=== PATIENT | male | born 1950 | race Caucasian/White ===

== ENCOUNTER 2021-05-21 10:37 | Emergency (ER) | payer MEDICARE, SELFPAY ==
[2021-05-21 10:48] VITALS: BP 118/66; PULSE 66; RESP 16; TEMP 36.3; O2SAT 98
[2021-05-21 11:00] VITALS: BP 118/66; PULSE 66; RESP 16; TEMP 36.3; O2SAT 98
--- NOTE | 2021-05-21 11:07 | ED.URI ---
HPI - URI/Sore Throat General Chief Complaint: Upper Respiratory Infection Stated Complaint: cough/head congestion Time Seen by Provider: 05/21/21 10:51 Source: patient and RN notes reviewed Mode of arrival: ambulatory Limitations: no limitations History of Present Illness HPI Narrative: 71-year-old male presents to the [facility] with complaints of I have a head cold and cough. Patient reports he has had sinus drainage, sinus pressure, productive cough. Denies fever states it started over a week ago. Started to get better on Monday and then next day it was a lot worse. Has taken Mucinex DM. Denies fevers, chest pain. No abdominal pain. No nausea vomiting or diarrhea. Related Data Home Medications Medication Instructions Recorded Confirmed ltxyuxwgfjg-ypl-zgvyvpwzp-hrb 1 tablet PO DAILY 05/25/20 05/21/21 149-hyalur 500 mg-500 mg-66.7 mg tablet omega 7-lbj-cid-fish oil 1,200 mg 2 cap PO DAILY 05/25/20 05/21/21 (144 mg-216 mg) capsule ascorbic acid (vitamin C) 1,000 mg 1 g PO DAILY 09/29/20 05/21/21 tablet magnesium 250 mg tablet 500 mg PO DAILY tablet 09/29/20 05/21/21 zinc 50 mg tablet 50 mg PO DAILY 09/29/20 05/21/21 Allergies Allergy/AdvReac Type Severity Reaction Status Date / Time pseudoephedrine Allergy Unknown Unknown Verified 05/21/21 11:02 Review of Systems Review of Systems: All systems reviewed & are unremarkable except as noted in HPI and below Constitutional: Constitutional: Reports no additional constitutional complaints, Denies chills and Denies fever(s) Eyes: Eyes: Reports no additional eye complaints, Denies change in vision and Denies photophobia ENT: Reports as per HPI and Reports nasal congestion Cardiovascular: Cardiovascular: Reports no additional cardiovascular complaints and Denies chest pain Respiratory: Respiratory: Reports as per HPI and Reports cough (Protective) Gastrointestinal: Gastrointestinal: Reports no additional gastrointestinal complaints, Denies abdominal pain, Denies nausea and Denies vomiting Genitourinary: Genitourinary: Reports no additional male genitourinary complaints Musculoskeletal: Musculoskeletal: Reports no additional musculoskeletal complaints, Denies back pain and Denies muscle cramps Integumentary/Breasts: Skin/Breast: Reports system reviewed and no additional complaints, except as docu and Denies rash Neurologic: Reports system reviewed and no additional complaints, except as documented, Denies vertigo and Denies dizziness Psychiatric: Psychiatric: Reports no additional psychiatric complaints Allergic/Immunologic: Allergic/Immunologic: Reports no additional allergic/immunologic complaints, Denies lip swelling, Denies throat swelling and Denies tongue swelling PMFSH Past Medical History Medical History BPH NOS w/o ur obs/LUTS Erectile dysfunction GERD without esophagitis Unspecified osteoarthritis, unspecified site (~01/10/19) Surgical History Surgical History History of arthroscopy of right knee History of hernia surgery left inguinal hernia repair -2008 History of urologic surgery 08/2018 - UroLift surgery Family History Family History Mother Family history of lung cancer Father Family history of lymphoma Family history of congestive heart failure Social History Social History Smoking status: Never smoker Second hand tobacco smoke exposure: No Alcohol intake: current Substance use: never Substance use type: does not use Gender identity (if verbalized by the patient): Male Comments At the time of my signature, I reviewed and agree with the nursing past medical, surgical, social, and family history. There is no relevant family history pertinent to the patient complaint. Exam Const:
== END 2021-05-21 11:15 | disposition home or self-care (01) ==
PROVIDERS: Emergency Provider Nurse Practitioner; PCP Family Medicine
DX: J01.90 Acute sinusitis, unspecified (principal); N40.0 Benign prostatic hyperplasia without lower urinary tract symptoms; K21.9 Gastro-esophageal reflux disease without esophagitis; M19.90 Unspecified osteoarthritis, unspecified site
CPT/HCPCS: 99213; G0463

== ENCOUNTER → 2021-06-08 07:56 | Outpatient (CLI) | payer MEDICARE, SELFPAY ==
--- NOTE | ~2021-06-08 | MR_ITS ---
EXAMINATION: MR knee LT wo con DATE: 06/08/2021 08:55 INDICATION: Unilateral primary osteoarthritis of the left knee presenting with chronic pain TECHNIQUE: Magnetic resonance imaging (MRI) of the left knee was performed without intravenous contra st. Sequences included coronal PD-weighted FSE, coronal PD-weighted FS FSE, sagittal T2-weighted FSE , sagittal PD-weighted FS FSE and axial PD weighted fat saturated FSE. COMPARISON: None. FINDINGS: Medial compartment: Complex tear of the medial meniscus which includes a full-thickness radial tear plane near the laundry helper ior root as well as and longitudinal tear plane extending to the inferior articular surface both lung the inner third of the posterior horn and separately on the peripheral third of the body and posteri or horn. Full-thickness chondral ulceration with deep fissuring and mild underlying subarticular joyce a at the anterior and central weightbearing medial femoral condyle. Lateral compartment: Fraying versus small tear of indeterminate morphology involving the inner free edge of the posterior horn of the lateral meniscus. Deep chondral fissures along the anterior weightbearing lateral femoral condyle. Small central osteophytes in the region of chondral ulceration at the posterior most weight bearing lateral femoral condyle. Patellofemoral compartment: Partial-thickness chondral ulceration with deep fissuring and mild scattered underlying subarticular edema at the lateral patellar facet and apical ridge. Trochlear cartilage is normal. Ligaments and tendons: Anterior and posterior cruciate ligaments are normal. Mild thickening of the proximal medial collater al ligament without surrounding edema to suggest acute injury consistent with mild scarring related t o chronic sprain. The fibular collateral ligament is normal. The extensor mechanism is normal. The vi sualized medial and lateral hamstring tendons as well as the iliotibial band are normal. Fluid: Small to moderate-sized left knee joint effusion with mild synovitis at the suprapatellar pouch. No l oose osteochondral bodies identified. Very small Sigala's cyst. Osseous/other: Normal marrow signal aside from the previous noted mild degenerative subchondral edema. Mild cystic c hange at the posterior root of the torn medial meniscus. No fracture or pathologic marrow replacing p rocess. IMPRESSION: 1. Complex tear of the body and posterior horn of the medial meniscus. 2. Fraying versus small tear of indeterminate morphology along the inner free edge of the posterior h orn of the lateral meniscus. 3. Mild tricompartmental osteoarthritis with regions of high-grade chondromalacia in all 3 compartmen ts. 4. Small to moderate left knee joint effusion and very small Sigala's cyst. Reviewed, dictated and finalized at location A. IMPRESSION: 1. Complex tear of the body and posterior horn of the medial meniscus. 2. Fraying versus small tear of indeterminate morphology along the inner free e dge of the posterior horn of the lateral meniscus. 3. Mild tricompartmental osteoarthritis with regions of high-grade chondromalac ia in all 3 compartments. 4. Small to moderate left knee joint effusion and very small Sigala's cyst.
== END ==
PROVIDERS: PCP Family Medicine
DX: M17.12 Unilateral primary osteoarthritis, left knee (principal); S83.242A Other tear of medial meniscus, current injury, left knee, initial encounter; X58.XXXA Exposure to other specified factors, initial encounter
CPT/HCPCS: 73721

== ENCOUNTER 2022-08-18 01:26 | Day surgery (SDC) | payer MEDICARE, SELFPAY ==
[2022-08-12 08:10] VITALS: BMI 25.1
--- NOTE | 2022-08-12 08:25 | PC.NURSE ---
Report to the Outpatient Waiting Room, entrance under the green pavilion located off [facility], at time __10:00AM on date ___08/18/22____. OR Time: _12:00PM . Time changes happen often and if your time is changed the preop area will call you the afternoon before. - You and your visitor will be asked to self-screen and do not enter if you have any COVID symptoms. - Only one visitor and NO children visitors are allowed at this time. - The patient visitor is requested to leave or wait in car when not with patient due to restrictions. - A mask is required within the hospital. Patients may have clear liquids (water, carbonated beverages, clear teas, apple juice) until 3 hours prior to surgery with a maximum of 20 ounces. - No food from midnight until time of surgery Take the following medications with a SIP of water the morning of surgery: ___NONE Medications to discontinue per physician ___HOLD ALL VITAMINS/SUPPLEMENTS 7 DAYS PRE-OP Date to take last dose____08/11/22 Please no make-up, nail irish, hairspray, perfume, deodorant, or body powder the day of surgery. No jewelry (including any body piercings) or valuables the day of surgery, leave them at home. Please take a shower or bath the night before, or the morning of, surgery with an antibacterial soap. Wear comfortable, loose fitting clothing. Children are encouraged to wear pajamas. - Jewelry must be removed prior to entering the operating room. Rings and piercings that are not removed may be cut off. - The hospital will not accept responsibility for valuables. - Please leave all valuables, including medications, at home the day of surgery. If you are going home after surgery, a licensed ambulette driver must drive you home. - NO public transportation without another adult. - We recommend that an adult stay with you for 24 hours following discharge. - We also recommend that you do not drive, make important decision, drink alcoholic beverages, or take any drugs that were not prescribed by your health care provider for at least 24 hours after your discharge time. Follow any additional instructions given to you from your surgeon. If you or anyone in your household have experienced Covid symptoms in the past week, please notify your surgeon or the nurse liaison at the phone number below for possible testing. Telephone instructions given to __PATIENT and asked if any additional questions and then verbalized understanding. Patient advised to call surgeon office or pre surgery nurse liaison [phone] if any additional questions.
--- NOTE | 2022-08-15 07:44 | PM.IMHP ---
H&P: HPI History of Present Illness Date/Time: 08/15/22 07:44 Chief Complaint: Urinary frequency, urgency and diminished stream Narrative: 72-year-old gentleman with longstanding obstructive and irritable voiding symptoms secondary to bladder outlet obstruction. After thorough evaluation he underwent a UroLift procedure in August 2018. Just prior to that he had had transrectal ultrasound of the prostate which revealed a 41 g gland. After an initial response to the Urolift he again began to have urinary frequency urgency and nocturia. Recent urodynamics revealed findings consistent with persistent bladder outlet obstruction. After discussion of options including medical therapy, alternative minimally invasive procedures and TURP he has elected for the latter. He is aware of the risk including, but not limited to, postoperative bleeding, urinary incontinence, persistent obstructive or irritable symptoms. Review of Systems Cardiovascular: Cardiovascular: Denies chest pain, Denies lightheadedness, Denies palpitations and Denies dyspnea Respiratory: Respiratory: Denies dyspnea Gastrointestinal: Gastrointestinal: Denies diarrhea, Denies nausea and Denies vomiting Genitourinary: Genitourinary: Denies hematuria and Denies dysuria Endocrine: Endocrine: Denies palpitations PMFSH Past Medical History Medical History BPH NOS w/o ur obs/LUTS Erectile dysfunction GERD without esophagitis Seasonal allergies Unspecified osteoarthritis, unspecified site (~01/10/19) Surgical History Surgical History History of arthroscopy of right knee (~2004) History of hernia surgery left inguinal hernia repair -2008 History of urologic surgery 08/2018 - UroLift surgery Family History Family History Mother Family history of lung cancer Father Family history of lymphoma Family history of congestive heart failure Social History Social History Smoking status: Never smoker Second hand tobacco smoke exposure: Yes (IN CHILDHOOD) Alcohol intake: current Drinks per week: 7 Alcohol use details: consumes 2 beers or glasses of wine weekly Substance use: never Substance use type: does not use Additional living arrangements comments: SPOUSE Gender identity (if verbalized by the patient): Male Sexual Orientation (if Verbalized by the Patient): Straight or Heterosexual Spiritual care concerns: No Agree to blood products: Yes Meds Home Medications and Allergies Home Medications Medication Instructions Recorded Confirmed Type ascorbic acid (vitamin C) 1,000 mg 1 g PO DAILY 09/29/20 08/12/22 History tablet (Vitamin C) zinc 50 mg tablet 50 mg PO DAILY 09/29/20 08/12/22 History tadalafil 5 mg tablet 5 mg PO DAILY 11/05/21 08/12/22 History Allergies Allergy/AdvReac Type Severity Reaction Status Date / Time pseudoephedrine Allergy Unknown Other Verified 08/12/22 08:08 Exam Const: General: no acute distress Resp: Effort & Inspection: normal respiratory effort GI: Inspection: non-distended GI Palp: No abdominal tenderness and No Guarding due to palpation present (GI) Auscultation: normal bowel sounds Assessment and Plan Assessment and plan (1) BPH NOS w/o ur obs/LUTS: Code(s): N40.0 - Benign prostatic hyperplasia without lower urinary tract symptoms Status: Acute Assessment and Plan: TURP
--- NOTE | 2022-08-17 12:57 | WPDANESEPPF ---
Anes - Initial Pre Proc Eval Procedure: Operation Date: 08/18/22 11:45 Proposed Procedures p Trans Urethral Resection Prostate - Connor Stanton MD Date/Time: 08/17/22 12:57 Surgeon: Connor Stanton MD Pre Op Diagnosis: BPH Patient Data Age: 72 Gender: M Height: 1.83 m Weight: 84 kg Allergies Allergy/AdvReac Type Severity Reaction Status Date / Time pseudoephedrine Allergy Unknown Other Verified 08/18/22 10:26 Home Medications Medication Instructions Recorded Confirmed Type ascorbic acid (vitamin C) 1,000 mg 1 g PO DAILY 09/29/20 08/12/22 History tablet (Vitamin C) zinc 50 mg tablet 50 mg PO DAILY 09/29/20 08/12/22 History tadalafil 5 mg tablet 5 mg PO DAILY 11/05/21 08/12/22 History Patient hx anesthesia problems: none Family hx anesthesia problems: none Results Review: All pre-operative results and documents have been reviewed as part of the pre-operative evaluation. [facility] Past Medical History Medical History BPH NOS w/o ur obs/LUTS Erectile dysfunction GERD without esophagitis Seasonal allergies Unspecified osteoarthritis, unspecified site (~01/10/19) Surgical History Surgical History History of arthroscopy of right knee (~2004) History of hernia surgery left inguinal hernia repair -2008 History of urologic surgery 08/2018 - UroLift surgery Family History Family History Mother Family history of lung cancer Father Family history of lymphoma Family history of congestive heart failure Social History Social History Smoking status: Never smoker Second hand tobacco smoke exposure: Yes (IN CHILDHOOD) Alcohol intake: current Drinks per week: 7 Alcohol use details: consumes 2 beers or glasses of wine weekly Substance use: never Substance use type: does not use Living arrangements: with family Additional living arrangements comments: SPOUSE Gender identity (if verbalized by the patient): Male Sexual Orientation (if Verbalized by the Patient): Straight or Heterosexual Spiritual care concerns: No Agree to blood products: Yes Anes - Eval Final PreProcedure Day of Procedure 08/17/22 12:57 Patient weight: normal Heart: regular rate and rhythm Lungs: clear to auscultation and normal air movement Airway: Mallampati scale class II Neurological: alert and oriented Last oral intake: >/= 8 hours ASA classification: II Emergent: no Anesthetic plan: proceed Anesthesia type and monitoring: general LMA Results Review: All pre-operative results and documents have been reviewed as part of the pre-operative evaluation. Informed Consent: The patient's anesthetic plan and its attendant risks and benefits were discussed with the patient/family/POA. Questions were solicited and answers provided to the satisfaction of the patient/family/POA.
[2022-08-18] VITALS (15 sets, daily range): BP systolic 113–181; BP diastolic 67–110; PULSE 44–70; RESP 12–20; TEMP 35.5–36.6; O2SAT 93–100; BMI 24.7
--- NOTE | 2022-08-18 06:27 | WPDHPUPDATE1 ---
History and Physical Update Update Date/Time: 08/18/22 06:27 History and Physical has been reviewed, including an updated exam of the patient. There are NO changes in the patient's condition. Risks, benefits, and alternatives have been discussed and questions answered. Patient agrees to proceed with procedure.
[2022-08-18] MEDS: LACTATED RINGERS 1,000 ML 30 ML IV CONT ×2 (10:50→13:38)
[2022-08-18] MEDS: ceFAZolin 2 GM/D5W 50 ML 2 GM/50 ML BAG IVPB (11:32)
[2022-08-18] MEDS: LIDOCAINE HCL 2% GEL UROJET 10 ML PKG MUCOUS MEM (11:32)
--- NOTE | 2022-08-18 12:42 | P.OP_ITS ---
Procedure Note - Detailed Date of Procedure 08/18/22 Pre-op Diagnosis BPH Post-op Diagnosis Same Procedure Performed TURP Surgeon Connor Stanton MD Description of Procedure The patient was brought to the operative suite where he is prepped and draped in routine sterile fashion while in the dorsal lithotomy position after the uneventful induction of a [general LMA/spinal] anesthetic. A 27 Upper Sorbian resectoscope sheath was placed into his bladder. He had no urethral strictures. The patient had bilobar] hyperplasia with a small median lobe. The bladder itself was endoscopically normal, showing no mucosal hyperemia, intravesical neoplasm or foreign bodies. There was a single, orthotopic ureteral orifice bilaterally. These orifices were identified and preserved throughout the remainder of the procedure. Attention was first turned to resection of the skall median lobe. This resection was undertaken from the bladder neck to the verumontanum and carried out until the transverse fibers of the bladder neck were identified. The left lateral lobe was then resected starting at the 6 o'clock position, working counter clockwise to the 12 o'clock position. Again, resection was carried out from the bladder neck to the verumontanum until the capsular fibers of the prostate were identified. The right lateral lobe was resected in a similar fashion starting at the 6 o'clock position working clockwise to the 12 o'clock position and carried out until the capsular fibers of the prostate were identified. Apical tissue was then circumferentially resected. All chips were evacuated from the bladder using an frents evacuator. Hemostasis was obtained with electric cautery. The ureteral orifices were again inspected and found to be without injury. Estimated blood loss throughout this procedure was []cc. The patient was taken to recovery room having tolerated this well. Drains Yes Packing No Pathology Yes Complications No immediate complications Condition Stable Disposition PACU
[2022-08-18] MEDS: fentaNYL CITRATE INJ (*CRX) 100 MCG/2 ML VIAL 25 MCG IV PUSH ×4 (13:19→13:46)
--- NOTE | 2022-08-18 14:34 | ADMGEN ---
This patient, Dave Menezes, was admitted to [facility] Surg Room 328-01. Patient/family oriented to hospital policies and general routines including ID bracelet, bed and alarms, visiting hours, pain management, procedures, bathroom and other care routines, personal items, smoking policy, room service/diet, and visiting hours. Information on how to activate the Rapid Response Team has been discussed. Patient/Family are encouraged to report perceived risks to care and to ask questions if they do not understand what they are told or what they should do.
[2022-08-18] MEDS: hydrALAZINE 10 MG TABLET PO (17:20)
[2022-08-18] MEDS: DOCUSATE SODIUM 100 MG CAPSULE PO (17:22)
[2022-08-19 00:15] VITALS: BP 120/66; PULSE 69; RESP 18; TEMP 36.9; O2SAT 96
[2022-08-19 04:15] VITALS: BP 113/71; PULSE 60; RESP 18; TEMP 36.6; O2SAT 98
--- NOTE | 2022-08-19 07:08 | WPDUROPN2 ---
Progress Note: A&P Assessment and Plan (1) BPH NOS w/o ur obs/LUTS: Code(s): N40.0 - Benign prostatic hyperplasia without lower urinary tract symptoms Status: Acute Assessment and Plan: Doing well POD #1 TURP Stop CBI now / voiding trial later this morning if urine remains clear Subjective Subjective Date/Time Seen: 08/19/22 07:08 Uneventful night Review of Systems Cardiovascular: Cardiovascular: Denies chest pain, Denies lightheadedness, Denies palpitations and Denies dyspnea Respiratory: Respiratory: Denies dyspnea Gastrointestinal: Gastrointestinal: Denies diarrhea, Denies nausea and Denies vomiting Genitourinary: Genitourinary: Denies hematuria and Denies dysuria Endocrine: Endocrine: Denies palpitations Exam Const: General: no acute distress Resp: Effort & Inspection: normal respiratory effort GI: Inspection: non-distended GI Palp: No abdominal tenderness and No Guarding due to palpation present (GI) Auscultation: normal bowel sounds Urinary Catheter: Urinary Catheter: urine pink Objective Data Vital Signs Vital Signs: Vital Signs - 24 hr 08/18/22 10:15 08/18/22 12:46 08/18/22 13:00 Temperature 97.8 F 97.5 F L Pulse Rate 66 50 L 44 L Respiratory Rate 14 16 14 Blood Pressure 113/71 147/94 H 163/93 H Pulse Oximetry 98 98 100 Oxygen Delivery Room Air Simple Face Mask Simple Face Mask Oxygen Flow Rate 6 8 08/18/22 13:15 08/18/22 13:30 08/18/22 13:45 Temperature Pulse Rate 44 L 53 L 46 L Respiratory Rate 12 12 14 Blood Pressure 181/100 H 163/90 H 148/95 H Pulse Oximetry 100 94 93 Oxygen Delivery Simple Face Mask Room Air Room Air Oxygen Flow Rate 8 08/18/22 14:00 08/18/22 14:15 08/18/22 15:06 Temperature Pulse Rate 58 L 52 L Respiratory Rate 14 14 Blood Pressure 171/97 H 170/96 H Pulse Oximetry 98 100 Oxygen Delivery Room Air Room Air Room Air Oxygen Flow Rate 08/18/22 14:30 08/18/22 14:45 08/18/22 15:15 Temperature 96 F L 96.1 F L 96.2 F L Pulse Rate 48 L 55 L 55 L Respiratory Rate 20 18 20 Blood Pressure 158/84 H 163/83 H 175/83 H Pulse Oximetry 99 97 98 Oxygen Delivery Oxygen Flow Rate 08/18/22 16:15 08/18/22 16:45 08/18/22 18:56 Temperature 96.1 F L Pulse Rate 54 L Respiratory Rate 18 Blood Pressure 171/93 H 172/110 H 145/69 H Pulse Oximetry 99 Oxygen Delivery Oxygen Flow Rate 08/18/22 20:15 08/19/22 00:15 08/19/22 04:15 Temperature 97.7 F 98.4 F 97.8 F Pulse Rate 70 69 60 Respiratory Rate 18 18 18 Blood Pressure 129/67 120/66 113/71 Pulse Oximetry 97 96 98 Oxygen Delivery Oxygen Flow Rate Intake/Output Intake/Output: Intake & Output 08/16/22 08/17/22 08/18/22 08/19/22 23:59 23:59 23:59 23:59 Intake Total 890 250 Output Total 9005 1300 Balance -9322 -1050 Meds/Results Medications: Active Medications Generic Name Dose Route Start Last Admin Trade Name Freq PRN Reason Stop Dose Admin Hydrocodone Bitart/Acetaminophen 1 tab 08/18/22 14:30 Hydrocodone/Acetaminophen (*Crx) 5-325 Mg Tablet PO Q4H PRN Pain Rated 1-6 Cephalexin HCl 500 mg 08/19/22 09:00 Cephalexin 500 Mg Capsule PO QID MAR Docusate Sodium 100 mg 08/18/22 17:00 08/18/22 17:22 Docusate Sodium 100 Mg Capsule PO 100 mg BID [facility] Administration Hydralazine HCl 10 mg 08/18/22 16:51 08/18/22 17:20 Hydralazine 10 Mg Tablet PO 10 mg Q6H PRN Administration Blood Pressure - High Hyoscyamine 0.125 mg 08/18/22 14:30 Hyoscyamine Sulfate 0.125 Mg Tablet SUBLINGUAL Q6H PRN Bladder Spasm Morphine Sulfate 2 mg 08/18/22 14:30 Morphine Sulfate (*Crx) 2 Mg/Ml Inj IV PUSH Q2H PRN Pain Rated 7-10 Naloxone HCl 0.1 mg 08/18/22 14:30 Naloxone Hcl 0.4 Mg/Ml Vial IV PUSH Q2M PRN Opiate Reversal Non-Formulary Medication 5 mg 08/19/22 09:00 Tadalafil PO 09/18/22 08:59 DAILY [facility] Ondansetron HCl 4 mg 08/18
[2022-08-19 07:10] LABS: Hematocrit 41.5 % (42.0-52.0); Hemoglobin 13.8 g/dL (14.0-18.0)
[2022-08-19 07:22] LABS: Anion Gap 8 mmol/L (8-16); Blood Urea Nitrogen 19 mg/dL (9-20); Calcium 8.4 mg/dL (8.4-10.2); Carbon Dioxide 27 mmol/L (22-30); Chloride 104 mmol/L (98-107); Estimated CRCL calculation 58 ml/min; Estimated Glomerular Filt Rate > 60; Glucose 112 mg/dL (65-110); Potassium 4.1 mmol/L (3.4-5.0); Sodium 139 mmol/L (137-145)
[2022-08-19] MEDS: DOCUSATE SODIUM 100 MG CAPSULE PO (08:04)
[2022-08-19] MEDS: CEPHALEXIN 500 MG CAPSULE PO ×2 (08:04→12:55)
[2022-08-19] MEDS: HYDROcodone/acetaminophen (*CRX) 5-325 MG TABLET 1 TAB PO (10:04)
--- NOTE | 2022-08-19 10:24 | WPDANESPN ---
Anes - Prog Note Post-Op Date/Time: 08/19/22 10:24 Cardiovascular status: normal Respiratory status: normal Airway patency: baseline Mental status: baseline Post-Op hydration status: normal Vital Signs: Last Vital Signs Temp 36.6 C 08/19/22 04:15 Pulse 60 08/19/22 04:15 Resp 18 08/19/22 04:15 BP 113/71 08/19/22 04:15 Pulse Ox 98 08/19/22 04:15 O2 Del Method Room Air 08/19/22 08:00 O2 Flow Rate 8 08/18/22 13:15 Pain Score (VAS): 11/29 I/O: Intake & Output 08/18/22 08/19/22 08/19/22 23:59 07:59 15:59 Intake Total 290 250 240 Output Total 1875 1300 Balance -1585 -1050 240 Laboratory Tests 08/19/22 06:44 08/19/22 06:44 08/19/22 08/19/22 06:44 06:44 Hgb 13.8 L Hct 41.5 L Sodium 139 Potassium 4.1 Chloride 104 Carbon Dioxide 27 Anion Gap 8 BUN 19 Creatinine 1.10 Estim Creat Clear Calc 58 Estimated GFR > 60 Glucose 112 H Calcium 8.4 Post-procedural complaints: none Patient Feedback: Patient satisfied with anesthetic care.
--- NOTE | 2022-08-19 12:32 | P.DS_ITS ---
DS: Admitting Diagnosis Discharge Date 08/19/2022 Admitting Diagnosis BPH DS: Summary Hospital Course Hospital Course: This patient with longstanding prostatism refractory for medical management was admitted on the morning of his planned TURP. The procedure was undertaken on that same day in an uneventful fashion. His post-operative course was, likewise, uneventful. On the evening of the procedure he was tolerating a diet. On POD#1 his urine was clear on CBI. The urine remained clear and, therefore, the catheter was removed late morning. The patient was observed for several moises rs, until he demonstrated he could void effectively without significant hematuria. He was discharged with careful instruction on limiting physical activity x2 weeks and plans to f/ in 2-3 weeks. At discharge he was comfortable and tolerating a diet. Time Spent with Patient Time attestation: Total time spent providing and/or coordinating discharge services: DS: Data Data Completed and Pending Completed studies during hospitalization: Pending at discharge 08/18/22 12:25 Surgical [PTH] Routine Labs on day of discharge: Labs from last 24 hours 08/19/22 08/19/22 06:44 06:44 Hgb 13.8 L Hct 41.5 L Sodium 139 Potassium 4.1 Chloride 104 Carbon Dioxide 27 Anion Gap 8 BUN 19 Creatinine 1.10 Estim Creat Clear Calc 58 Estimated GFR > 60 Glucose 112 H Calcium 8.4 Discharge Plan Discharge Patient Disposition: Home, Self-Care Discharge Instructions: 1) Activity: No lifting/straining >15lbs. x2 weeks. 2) Diet: Resume normal pre-admission diet. 3) Follow-up: 2-3 weeks / call office for appointment ([phone]). Patient Instructions: Transurethral Prostatectomy (DC), Prostatic Urethral Lift (UroLift System) (DC) Discharge Orders: Discharge Order (Routine); Ordered 08/19/22 Ordered By: Connor Stanton Discharge Medications: New hydrocodone-acetaminophen 5-325 mg tablet 1 - 2 tablet PO Q6H PRN (Reason: pain) Qty: 20 0RF docusate sodium [Colace] 100 mg capsule 100 mg PO DAILY Qty: 30 0RF sulfamethoxazole-trimethoprim 800-160 mg tablet 1 tablet PO Q12H Qty: 6 0RF Continued zinc 50 mg tablet 50 mg PO DAILY ascorbic acid (vitamin C) [Vitamin C] 1,000 mg tablet 1 g PO DAILY tadalafil 5 mg tablet 5 mg PO DAILY
== END 2022-08-19 13:05 | disposition home or self-care (01) ==
LOC: ANHSURGERY 13:26 → ANH3MEDSUR 16:33
PROVIDERS: PCP Family Medicine; Visit Provider Urology
PROC: 0VT08ZZ Resection of Prostate, Via Natural or Artificial Opening Endoscopic (ICD-10-PCS; CPT 52601; principal; 2022-08-18 11:45)
DX: N40.1 Benign prostatic hyperplasia with lower urinary tract symptoms (principal); R35.0 Frequency of micturition; R39.15 Urgency of urination; K21.9 Gastro-esophageal reflux disease without esophagitis
CPT/HCPCS: 52601; 36415; 80048; 85014; 85018; 88305; A9270; J0690; J1100; J2250; J2405; J2704; J3010; J7120

== ENCOUNTER 2022-09-13 13:40 | Outpatient (CLI) | payer MEDICARE, SELFPAY | END 2022-09-13 13:41 | disposition home or self-care (01) | LOC: ANHGOSHLAB 13:42 | PROVIDERS: PCP Family Medicine; Visit Provider Nurse Practitioner Family | DX: E03.9 Hypothyroidism, unspecified (principal) | CPT/HCPCS: 36415; 84443 ==

== ENCOUNTER 2023-06-08 11:02 | Outpatient (CLI) | payer MEDICARE, SELFPAY ==
[2023-06-08 13:28] LABS: Basophils Percent Auto 0.7 % (0.2-1.2); Eosinophils Percent Auto 0.7 % (0-4.4); Hematocrit 48.1 % (42.0-52.0); Hemoglobin 15.6 g/dL (14.0-18.0); Immature Granulocyte Absolute 0.01 K/mm3 (0.00-0.031); Immature Granulocyte Percent A 0.2 % (0-0.5); Lymphocytes Absolute Auto 1.98 K/mm3 (0.9-3.2); Lymphocytes Percent Auto 32.9 % (18.3-44.2); Mean Corpuscular HGB Conc 32.4 g/dl (32-36); Mean Corpuscular Hemoglobin 30.7 pg (26-34); Mean Corpuscular Volume 94.7 fl (80-100); Mean Platelet Volume 11.7 fl (7.4-10.4); Monocytes Absolute Auto 0.5 K/mm3 (0.1-0.6); Monocytes Percent Auto 8.8 % (2.6-8.5); Neutrophils Absolute Auto 3.4 K/mm3 (1.3-6.7); Neutrophils Percent Auto 56.7 % (45.5-73.1); Platelet Count Result 159 k/mm3 (150-375); Red Blood Count 5.08 M/mm3 (4.6-6.20); Red Cell Distribution Width 12.7 % (11.5-14.5)
[2023-06-08 14:20] LABS: Alanine Aminotransferase 18 U/L (6-50); Albumin Level 4.6 g/dL (3.5-5.1); Alkaline Phosphatase 81 U/L (38-126); Anion Gap 4 mmol/L (8-16); Aspartate Amino Transferase 32 U/L (17-59); Blood Urea Nitrogen 18 mg/dL (9-20); Calcium 9.3 mg/dL (8.4-10.2); Carbon Dioxide 32 mmol/L (22-30); Chloride 102 mmol/L (98-107); Cholesterol 188 mg/dL (0-200); Estimated Glomerular Filt Rate > 60; Glucose 99 mg/dL (65-110); HDL Direct 53 mg/dL; Potassium 4.9 mmol/L (3.4-5.0); Sodium 138 mmol/L (137-145); Triglycerides 106 mg/dL (<150)
[2023-06-08 14:35] LABS: Vitamin D 25 Hydroxy 73.5 ng/mL
[2023-06-08 14:40] LABS: LDL Cholesterol Direct 98 mg/dL
[2023-06-08 14:50] LABS: Prostate Specific Antigen 3.8 ng/mL (< OR = 4.0)
[2023-06-09 00:42] LABS: Hemoglobin A1C 5.6 % (<5.7)
== END 2023-06-08 11:03 | disposition home or self-care (01) ==
LOC: ANHGOSHLAB 11:04
PROVIDERS: PCP Family Medicine; Visit Provider Family Medicine
DX: R03.0 Elevated blood-pressure reading, without diagnosis of hypertension (principal); E55.9 Vitamin D deficiency, unspecified; R73.9 Hyperglycemia, unspecified; R61 Generalized hyperhidrosis; Z13.220 Encounter for screening for lipoid disorders; E53.8 Deficiency of other specified B group vitamins; J30.2 Other seasonal allergic rhinitis; R97.20 Elevated prostate specific antigen [PSA]; Z12.5 Encounter for screening for malignant neoplasm of prostate; E79.8 Other disorders of purine and pyrimidine metabolism; E78.00 Pure hypercholesterolemia, unspecified
CPT/HCPCS: 36415; 80053; 80061; 82306; 82607; 83036; 84153; 84443; 85025; G0103

== ENCOUNTER 2023-11-08 01:45 | Day surgery (SDC) | payer MEDICARE, SELFPAY ==
[2023-10-19 14:43] VITALS: BMI 24.7
--- NOTE | 2023-11-06 08:39 | SUR.PREOP ---
Patient called regarding upcoming procedure. Reviewed preop instructions, appointment times, and procedure prep.
[2023-11-08 09:50] VITALS: BP 103/82; PULSE 74; RESP 18; TEMP 36.4; O2SAT 99; BMI 24.3
[2023-11-08] MEDS: LACTATED RINGERS 1,000 ML 150 ML IV CONT (10:08)
--- NOTE | 2023-11-08 10:12 | PM.HPGS ---
History of Present Illness History of Present Illness Consent: Risks, benefits, and alternatives have been discussed and questions answered. Patient agrees to proceed with procedure. Chief complaint: neoplasm screening Narrative: Dave Menezes is a 73 year old male referred for colon cancer screening. Review of Systems Review of Systems: All systems reviewed & are unremarkable except as noted in HPI and below PMFSH Past Medical History Medical History BPH NOS w/o ur obs/LUTS Encounter for screening colonoscopy Erectile dysfunction GERD without esophagitis Seasonal allergies Unspecified osteoarthritis, unspecified site (~01/10/19) Surgical History Surgical History History of arthroscopy of right knee (~2004) History of hernia surgery left inguinal hernia repair -2008 History of urologic surgery 08/2018 - UroLift surgery Hx of transurethral resection of prostate (~08/18/22) Family History Family History Mother Family history of lung cancer Father Family history of lymphoma Family history of congestive heart failure Social History Social History Smoking status: Never smoker Second hand tobacco smoke exposure: Yes Alcohol intake: current Drinks per week: 4 Alcohol use details: Beer or Wine Substance use: never Substance use type: does not use Lack of Transportation: No Lack of Food: Never True Current Housing: Decline to Answer Concerned About Future Housing: Decline to Answer Difficulty Paying Gas/Electric Bills: Decline to Answer Difficulty Paying for Meds: Decline to Answer Currently Unemployed: Decline to Answer Education: Decline to Answer Difficulty w/ Childcare or Family Care: Decline to Answer Living arrangements: with family Additional living arrangements comments: SPOUSE Occupation/Education: retired Gender identity (if verbalized by the patient): Male Sexual Orientation (if Verbalized by the Patient): Straight or Heterosexual Spiritual care concerns: No Agree to blood products: Yes Meds Home Medications and Allergies Home Medications Medication Instructions Recorded Confirmed Type ascorbic acid (vitamin C) 1,000 mg 1 g PO DAILY 09/29/20 10/19/23 History tablet (Vitamin C) zinc 50 mg tablet 50 mg PO DAILY 09/29/20 10/19/23 History tadalafil 5 mg tablet 5 mg PO DAILY 11/05/21 10/19/23 History COVID-19 antigen test (RudiW #2 ea 07/26/23 Rx COVID-19 Ag Self Test kit) Allergies Allergy/AdvReac Type Severity Reaction Status Date / Time pseudoephedrine Allergy Unknown Other Verified 10/19/23 14:42 Vital Signs Vital Signs - 24 hr 11/08/23 09:50 Temperature 36.4 C L Pulse Rate 74 Respiratory Rate 18 Blood Pressure 103/82 Pulse Oximetry 99 Oxygen Delivery Room Air Exam Const: General: alert Orientation/consciousness: patient oriented x3 Resp: Auscultation: clear to auscultation bilaterally Cardio: Rhythm: regular rhythm GI: GI Palp: Yes Soft to palpation and No Tenderness to palpation present (GI) Neuro: General: patient oriented x3 Assessment and Plan Assessment and plan (1) Encounter for screening colonoscopy: Code(s): Z12.11 - Encounter for screening for malignant neoplasm of colon Status: Acute Assessment and Plan: Colonoscopy with possible biopsy or polypectomy or cautery or injection of substances.
--- NOTE | 2023-11-08 10:20 | WPDANESEPPF ---
Anes - Initial Pre Proc Eval Procedure: Operation Date: 11/08/23 11:00 Proposed Procedures p Screening Colonoscopy - Reza Leon MD Date/Time: 11/08/23 10:20 Surgeon: Reza Leon MD Pre Op Diagnosis: neoplasm screening Patient Data Age: 73 Gender: M Height: 1.83 m Weight: 81.5 kg Last Vital Signs Temp 36.4 C L 11/08/23 09:50 Pulse 74 11/08/23 09:50 Resp 18 11/08/23 09:50 BP 103/82 11/08/23 09:50 Pulse Ox 99 11/08/23 09:50 O2 Del Method Room Air 11/08/23 09:50 Allergies Allergy/AdvReac Type Severity Reaction Status Date / Time pseudoephedrine Allergy Unknown Other Verified 10/19/23 14:42 Home Medications Medication Instructions Recorded Confirmed Type ascorbic acid (vitamin C) 1,000 mg 1 g PO DAILY 09/29/20 10/19/23 History tablet (Vitamin C) zinc 50 mg tablet 50 mg PO DAILY 09/29/20 10/19/23 History tadalafil 5 mg tablet 5 mg PO DAILY 11/05/21 10/19/23 History COVID-19 antigen test (BinaxNOW #2 ea 07/26/23 Rx COVID-19 Ag Self Test kit) Patient hx anesthesia problems: none Family hx anesthesia problems: none Results Review: All pre-operative results and documents have been reviewed as part of the pre-operative evaluation. [facility] Past Medical History Medical History BPH NOS w/o ur obs/LUTS Encounter for screening colonoscopy Erectile dysfunction GERD without esophagitis Seasonal allergies Unspecified osteoarthritis, unspecified site (~01/10/19) Surgical History Surgical History History of arthroscopy of right knee (~2004) History of hernia surgery left inguinal hernia repair -2008 History of urologic surgery 08/2018 - UroLift surgery Hx of transurethral resection of prostate (~08/18/22) Family History Family History Mother Family history of lung cancer Father Family history of lymphoma Family history of congestive heart failure Social History Social History Smoking status: Never smoker Second hand tobacco smoke exposure: Yes Alcohol intake: current Drinks per week: 4 Alcohol use details: Beer or Wine Substance use: never Substance use type: does not use Lack of Transportation: No Lack of Food: Never True Current Housing: Decline to Answer Concerned About Future Housing: Decline to Answer Difficulty Paying Gas/Electric Bills: Decline to Answer Difficulty Paying for Meds: Decline to Answer Currently Unemployed: Decline to Answer Education: Decline to Answer Difficulty w/ Childcare or Family Care: Decline to Answer Living arrangements: with family Additional living arrangements comments: [employer] Occupation/Education: retired Gender identity (if verbalized by the patient): Male Sexual Orientation (if Verbalized by the Patient): Straight or Heterosexual Spiritual care concerns: No Agree to blood products: Yes Anes - Eval Final PreProcedure Day of Procedure 11/08/23 10:20 Results Review: All pre-operative results and documents have been reviewed as part of the pre-operative evaluation. Informed Consent: The patient's anesthetic plan and its attendant risks and benefits were discussed with the patient/family/POA. Questions were solicited and answers provided to the satisfaction of the patient/family/POA.
--- NOTE | 2023-11-08 10:21 | WPDANESEPPF ---
Anes - Initial Pre Proc Eval Procedure: Operation Date: 11/08/23 11:00 Proposed Procedures p Screening Colonoscopy - Reza Leon MD Date/Time: 11/08/23 10:21 Surgeon: Reza Leon MD Pre Op Diagnosis: neoplasm screening Patient Data Age: 73 Gender: M Height: 1.83 m Weight: 81.5 kg Last Vital Signs Temp 36.4 C L 11/08/23 09:50 Pulse 74 11/08/23 09:50 Resp 18 11/08/23 09:50 BP 103/82 11/08/23 09:50 Pulse Ox 99 11/08/23 09:50 O2 Del Method Room Air 11/08/23 09:50 Allergies Allergy/AdvReac Type Severity Reaction Status Date / Time pseudoephedrine Allergy Unknown Other Verified 10/19/23 14:42 Home Medications Medication Instructions Recorded Confirmed Type ascorbic acid (vitamin C) 1,000 mg 1 g PO DAILY 09/29/20 10/19/23 History tablet (Vitamin C) zinc 50 mg tablet 50 mg PO DAILY 09/29/20 10/19/23 History tadalafil 5 mg tablet 5 mg PO DAILY 11/05/21 10/19/23 History COVID-19 antigen test (BinaxNOW #2 ea 07/26/23 Rx COVID-19 Ag Self Test kit) Patient hx anesthesia problems: none Family hx anesthesia problems: none Results Review: All pre-operative results and documents have been reviewed as part of the pre-operative evaluation. [facility] Past Medical History Medical History BPH NOS w/o ur obs/LUTS Encounter for screening colonoscopy Erectile dysfunction GERD without esophagitis Seasonal allergies Unspecified osteoarthritis, unspecified site (~01/10/19) Surgical History Surgical History History of arthroscopy of right knee (~2004) History of hernia surgery left inguinal hernia repair -2008 History of urologic surgery 08/2018 - UroLift surgery Hx of transurethral resection of prostate (~08/18/22) Family History Family History Mother Family history of lung cancer Father Family history of lymphoma Family history of congestive heart failure Social History Social History Smoking status: Never smoker Second hand tobacco smoke exposure: Yes Alcohol intake: current Drinks per week: 4 Alcohol use details: Beer or Wine Substance use: never Substance use type: does not use Lack of Transportation: No Lack of Food: Never True Current Housing: Decline to Answer Concerned About Future Housing: Decline to Answer Difficulty Paying Gas/Electric Bills: Decline to Answer Difficulty Paying for Meds: Decline to Answer Currently Unemployed: Decline to Answer Education: Decline to Answer Difficulty w/ Childcare or Family Care: Decline to Answer Living arrangements: with family Additional living arrangements comments: [employer] Occupation/Education: retired Gender identity (if verbalized by the patient): Male Sexual Orientation (if Verbalized by the Patient): Straight or Heterosexual Spiritual care concerns: No Agree to blood products: Yes Anes - Eval Final PreProcedure Day of Procedure 11/08/23 10:21 Patient weight: normal Heart: regular rate and rhythm Lungs: clear to auscultation Airway: Mallampati scale class II Neurological: alert and oriented Last oral intake: >/= 8 hours ASA classification: I Emergent: no Anesthetic plan: proceed Anesthesia type and monitoring: general GIVS and standard monitoring Results Review: All pre-operative results and documents have been reviewed as part of the pre-operative evaluation. Informed Consent: The patient's anesthetic plan and its attendant risks and benefits were discussed with the patient/family/POA. Questions were solicited and answers provided to the satisfaction of the patient/family/POA.
[2023-11-08 10:38] VITALS: BP 109/77; PULSE 67; RESP 14; O2SAT 97
[2023-11-08 10:48] VITALS: BP 111/68; PULSE 59; RESP 19; O2SAT 97
[2023-11-08 10:58] VITALS: BP 125/78; PULSE 68; RESP 18; O2SAT 100
== END 2023-11-08 11:12 | disposition home or self-care (01) ==
PROVIDERS: PCP Family Medicine; Visit Provider Internal Medicine Gastroenterology
PROC: 0DJD8ZZ Inspection of Lower Intestinal Tract, Via Natural or Artificial Opening Endoscopic (ICD-10-PCS; CPT 45378; principal; 2023-11-08 11:00)
DX: Z12.11 Encounter for screening for malignant neoplasm of colon (principal); K57.30 Diverticulosis of large intestine without perforation or abscess without bleeding
CPT/HCPCS: G0121; J2704; J7120

== ENCOUNTER 2024-07-25 11:09 | Outpatient (CLI) | payer MEDICARE, SELFPAY ==
[2024-07-25 13:58] LABS: Basophils Percent Auto 0.4 % (0.2-1.2); Eosinophils Percent Auto 0.5 % (0-4.4); Hemoglobin 15.9 g/dL (14.0-18.0); Immature Granulocyte Absolute 0.01 K/mm3 (0.00-0.031); Immature Granulocyte Percent A 0.2 % (0-0.5); Lymphocytes Absolute Auto 2.11 K/mm3 (0.9-3.2); Lymphocytes Percent Auto 37.9 % (18.3-44.2); Mean Corpuscular HGB Conc 32.4 g/dl (32-36); Mean Corpuscular Hemoglobin 30.2 pg (26-34); Mean Corpuscular Volume 93.2 fl (80-100); Monocytes Absolute Auto 0.4 K/mm3 (0.1-0.6); Monocytes Percent Auto 7.6 % (2.6-8.5); Neutrophils Percent Auto 53.4 % (45.5-73.1); Platelet Count Result 164 k/mm3 (150-375); Red Blood Count 5.26 M/mm3 (4.6-6.20); White Blood Count 5.6 K/mm3 (4.5-10.0)
[2024-07-25 14:47] LABS: Alanine Aminotransferase 25 U/L (6-50); Albumin Level 4.5 g/dL (3.5-5.1); Alkaline Phosphatase 73 U/L (38-126); Anion Gap 7 mmol/L (4-12); Aspartate Amino Transferase 52 U/L (17-59); Bilirubin,Total 0.7 mg/dL (0.2-1.3); Blood Urea Nitrogen 17 mg/dL (9-20); Calcium 9.2 mg/dL (8.4-10.2); Carbon Dioxide 31 mmol/L (22-30); Chloride 101 mmol/L (98-107); Cholesterol 165 mg/dL (0-200); Estimated Glomerular Filt Rate > 60; Glucose 99 mg/dL (65-110); HDL Direct 56 mg/dL; Potassium 4.6 mmol/L (3.4-5.0); Sodium 139 mmol/L (137-145); Triglycerides 87 mg/dL (<150)
[2024-07-25 14:58] LABS: LDL Cholesterol Direct 81 mg/dL
[2024-07-25 16:04] LABS: Hemoglobin A1C 5.8 % (<5.7)
== END 2024-07-25 11:10 | disposition home or self-care (01) ==
LOC: ANHGOSHLAB 11:10
PROVIDERS: PCP Family Medicine; Visit Provider Family Medicine
DX: N52.9 Male erectile dysfunction, unspecified (principal); Z00.00 Encounter for general adult medical examination without abnormal findings; I10 Essential (primary) hypertension; Z13.29 Encounter for screening for other suspected endocrine disorder; E53.8 Deficiency of other specified B group vitamins; R73.9 Hyperglycemia, unspecified; E78.5 Hyperlipidemia, unspecified; E55.9 Vitamin D deficiency, unspecified
CPT/HCPCS: 36415; 80053; 80061; 82306; 82607; 83036; 84443; 85025

== ENCOUNTER 2024-12-26 13:14 | Outpatient (CLI) | payer MEDICARE, SELFPAY ==
--- OUTSIDE RECORDS SUMMARY | 2024-12-26 13:23 | XMS_ITS | Clinical Summary ---
Author Organization [facility] Address [address] [place] [address] Care Team Providers Care Shell Worker Name Role Phone Jaqui Ramirez MD Primary Care Provider Source Comments [facility],non-owned Affiliates and Associated Physician Practices is amultiple site organization consisting of ambulatory clinics and hospital sitesin [place], [place], [place] and [place]. This disclosure is being madepursuant to the Care Everywhere program and may not contain all information available regarding this patient. Last updated 18.[facility] Allergies Active Allergy Reactions Criticality Noted Date Comments Pseudoephedrine Base Other 04/02/2015 Urinary track gets inflammed Medications * Be aware that medications may not be up to date on this document. Alwaysverify current medications with the patient. Medication Sig Dispensed Refills Start Date End Date Status glucosamine 500 MG CAPS capsule Take 1 Cap by mouth once daily. Active [place]-3 Fatty Acids (FISH OIL) 500 MG CAPS capsule Take by mouth 2 times daily. Active omeprazole EC (PRILOSEC OTC) 20 MG tablet Take 20 mg by mouth at bedtime Active Aspirin 81 MG Take 81 mg by mouth Active finasteride (PROSCAR) 5 MG tablet 06/11/2017 Active tamsulosin (FLOMAX) 0.4 MG capsule 03/21/2016 Active fluticasone propionate (FLONASE) 50 MCG/ACT nasal sprayIndications:Acute pharyngitis, unspecified etiology [place] 2 Sprays into each nostril once daily 1 Bottle 06/24/2017 Active Active Problems No known active problems Family History Medical History Relation Name Comments Lymphoma Father Cancer - Lung Mother Relation Name Status Comments Father Mother Social History Tobacco Use Types Packs/Day Years Used Date Smoking Tobacco: Never Smokeless Tobacco: Never Alcohol Use Standard Drinks/Week Comments No 0 (1 standard drink = 0.6 oz pur e alcohol) Sex and Gender Information Value Date Recorded Sex Assigned at Not on file Gender Identity Not on file Sexual Orientation Not on file Last Filed Vital Signs Vital Sign Reading Time Taken Comments Blood Pressure 132/74 09/05/2017 10:23 AM CDT Pulse 64 09/05/2017 10:23 AM CDT Temperature 36.7 C (98.1 F) 09/05/2017 10:23 AM CDT Respiratory Rate 16 09/05/2017 10:23 AM CDT Oxygen Saturation 98% 09/05/2017 10:23 AM CDT Inhaled Oxygen Concentration - - Weight 81.6 kg (180 lb) 09/05/2017 10:23 AM CDT Height 182.9 cm (6') 09/05/2017 10:23 AM CDT Body Mass Index 24.41 09/05/2017 10:23 AM CDT Plan of Treatment Health Maintenance Due Date Last Done Comments COLOGUARD (AGES 45-75) - COL ON CA SCREENING 1949 COLON MONITORING 1949 COLONOSCOPY - COLON CA SCREENING 1949 CT COLONOGRAPHY - COLON CA SCREENING 1950 Colorectal Cancer Screening 1949 FIT - COLON CA SCREENING 1949 FLEX SIG - COLON CA SCREENING 1949 LIPID TESTING 1949 HEPATITIS C SCREENING 01/03/1967 DTAP/TDAP/TD VACCINES (1 - Tdap) 1968 PNEUMOCOCCAL VACCINE 50+ (1 of 1 - PCV) 1999 ZOSTER VACCINE (1 of 2) 1999 Respiratory Syncytial Virus (RSV) Vaccine Pt: or over 60 yrs (1 - 1-dose 75+ series) 2024 COVID-19 VACCINE ( - 2023-2 5 season) 2024 INFLUENZA VACCINE (#1) 2024 08/31/2015 DEPRESSION SCREENING 11/20/2024 HEPATITIS B VACCINE Aged Out No longe r eligible based on patient's age to complete this topic HIB VACCINE Aged Out No longer eligi ble based on patient's age to complete this topic HPV VACCINE Aged Out No longer eligi ble based on patient's age to complete this topic MENINGOCOCCAL (Group B) VACCINE Aged Out No longer eligible based on patient's age to complete this topic MENINGOCOCCAL VACCINE Aged Out No oliver thee eligible based on patient's age to complete this topic Care Teams Shell Worker Relationship Specialty Start Date End Date Jaqui Ramirez MD [address] [place] [address] PCP - General 08/25/22
--- OUTSIDE RECORDS SUMMARY | 2024-12-26 13:23 | XMS_ITS | Patient Health Summary ---
Author Organization [facility] Address [address] [place] [address] Care Team Providers Care Curtain Roller Assembler Name Role Phone Jaqui Ramirez MD Primary Care Provider Note from [facility],non-owned Affiliates and Associated Physician Practices is amultiple site organization consisting of ambulatory clinics and hospital sitesin [place], [place], [place] and [place]. This disclosure is being madepursuant to the Care Everywhere program and may not contain all information available regarding this patient. Last updated 18.[facility] Allergies * Pseudoephedrine Base(Other) Medications * Be aware that medications may not be up to date on this document. Alwaysverify current medications with the patient. * glucosamine 500 MG CAPS capsule Take 1 Cap by mouth once daily. * [place]-3 Fatty Acids (FISH OIL) 500 MG CAPS capsule Take by mouth 2 times daily. * omeprazole EC (PRILOSEC OTC) 20 MG tablet Take 20 mg by mouth at bedtime * Aspirin 81 MG Take 81 mg by mouth * finasteride (PROSCAR) 5 MG tablet(Started 06/11/2017) * tamsulosin (FLOMAX) 0.4 MG capsule(Started 03/21/2016) * fluticasone propionate (FLONASE) 50 MCG/ACT nasal spray(Started 06/24/2017) [place] 2 Sprays into each nostril once daily Active Problems No known active problems Social History Tobacco Use Types Packs/Day Years [...] Mass Index 24.41 09/05/2017 10:23 AM CDT Procedures * STREP A SCREEN - POINT OF CARE (AMB) STL(Performed 06/24/2017) Performed for Acute pharyngitis, unspecified etiology * CULTURE URINE(Performed 04/09/2016) Performed for Hematuria * URINALYSIS AUTO - POINT OF CARE (AMB) [facility](Performed 04/09/2016) Performed for Hematuria Results * STREP A SCREEN (06/24/2017 11:10 AM CDT) Strep A Rapid POCT Negative Negative Strep A Internal Control Present Lot # [id number] Expiration Date 02 10 2019 Throat ENTIRE THROAT (SURFACE REGION OF NECK) / Unknown 06/24/2017 11:10 AM CDT Sony Lawrence APRN-MILITARY ANALYST LAB - POINT OF [place] RE ORDERABLES * CULTURE URINE (04/09/2016 11:46 AM CDT) Culture No Growth Day 2 MARTIN 04/12/2016 7:12 AM CDT [facility] Urine URINE SPECIMEN OBTAINED BY CLEAN CATCH PROCEDURE / Unknown 04/09/2016 11:46 AM CDT 04/09/2016 11:46 AM CDT Beltran Quiles MD LAB - MICROBIOLOGY O RDERABLES [facility] [address] [place], [place] [address]R[place] [phone] * (ABNORMAL) URINALYSIS AUTO - POINT OF CARE (AMB) [facility] (04/09/2016) Clarity UA POCT Clear Color UA POCT Yellow Glucose UA Negative Negative Bilirubin UA POCT Negative Negative Ketone UA Negative Negative Specific [place] UA POCT >=1.030(A) 1.015, 1.020, 1.025 Blood UA POCT Moderate(A) Negative pH UA 5.5 5.0 - 8.0 pH units Protein UA Negative Negative Urobilinogen UA 0.2 0.1 - 1.0 Nitrite UA Negative Negative Leukocyte UA Negative Negative QC Verified Yes Yes Urine specimen (specimen) URINE / Unknown 04/09/2016 Beltran Quiles MD LAB - POINT OF CARE ORDERABLES Care Teams Curtain Roller Assembler Relationship Specialty Start Date End Date Jaqui Ramirez MD [address] [place] [address] PCP - General 08/25/22
--- OUTSIDE RECORDS SUMMARY | 2024-12-26 13:23 | XMS_ITS | Referral Summary ---
Author Organization [facility] Address [address] [place] [address] Care Team Providers Care Prism Inspector Name Role Phone Jaqui Ramirez MD Primary Care Provider Source Comments [facility],non-owned Affiliates and Associated Physician Practices is amultiple site organization consisting of ambulatory clinics and hospital sitesin [place], [place], [place] and [place]. This disclosure is being madepursuant to the Care Everywhere program and may not contain all information available regarding this patient. Last updated 18.[facility] Allergies Active Allergy Reactions Criticality Noted Date Comments Pseudoephedrine Base Other 04/02/2015 Urinary track gets inflammed Medications * Be aware that medications may not be up to date on this document. Alwaysverify current medications with the patient. Medication Sig Dispensed Refills Start Date End Date Status glucosamine 500 MG CAPS capsule Take 1 Cap by mouth once daily. Active [place]-3 Fatty Acids (FISH OIL) 500 MG CAPS capsule Take by mouth 2 times daily. Active omeprazole EC (PRILOSEC OTC) 20 MG tablet Take 20 mg by mouth at bedtime Active Aspirin 81 MG Take 81 mg by mouth Active finasteride (PROSCAR) 5 MG tablet 06/11/2017 Active tamsulosin (FLOMAX) 0.4 MG capsule 03/21/2016 Active fluticasone propionate (FLONASE) 50 MCG/ACT nasal sprayIndications:Acute pharyngitis, unspecified etiology [place] 2 Sprays into each nostril once daily 1 Bottle 06/24/2017 Active Active Problems No known active problems Social [...] 09/05/2017 10:23 AM CDT Plan of Treatment Not on file Care Teams Prism Inspector Relationship Specialty Start Date End Date Jaqui Ramirez MD [address] [place] [address] PCP - General 08/25/22
--- OUTSIDE RECORDS SUMMARY | 2024-12-26 13:23 | XMS_ITS | Clinical Summary ---
Author Organization [facility] Address Pending sale to [facility] [place] [address] Care Team Providers Care Painting Supervisor Name Role Phone Jaqui Ramirez MD Primary Care Provider Allergies Active Allergy Reactions Criticality Noted Date Comments Pseudoephedrine Other (See comments) Low 04/02/2015 Urinary tract discomfort Urinary track gets inflammed Medications zinc 50 mg tablet 0 Active tamsulosin (FLOMAX) 0.4 mg extended release capsule 6 Active sildenafiL (VIAGRA) 100 mg tablet 9 Active omeprazole (PriLOSEC) 40 mg capsule Take by mouth daily 0 Active fluticasone propionate (FLONASE) 50 mcg/actuation nasal spray Administer 2 sprays into affected nostril(s) daily 7 Active finasteride (PROSCAR) 5 mg tablet 7 Active aspirin 81 mg enteric coated tablet Take 81 mg by mouth Active omega-3 fatty acids-fish oil 300-500 mg capsule Take by mouth 2 (two) times a day Active sodium chloride 0.9% 0.9% parenteral solution 1,000 mL with thiamine 100 mg/mL solution 500 mg, folic acid 5 mg/mL solution 1 mg 0 Active glucosam-chondr sdo-T-vkrllaevk 500-400-2-0.33 mg capsule Take 1 capsule by mouth daily Active omega 3-nxx-soe-fish oil (Fish Oil) 900-1,400 mg capsule,delayed release(DR/EC) 8 Active ascorbic acid,vitamin C,,bulk, 100 % powder Take by mouth Active tadalafiL (CIALIS) 5 mg tablet Take 5 mg by mouth daily 2 Active Active Problems No known active problems Surgical History Surgery Date Site/Laterality Comments HERNIA REPAIR KNEE SURGERY TRANSURETHRAL RESECTION OF PROSTATE Medical History Medical History Date Comments Cancer (CMS/HCC) (HCC) Family History Medical History Relation Name Comments Cancer Father Cancer Mother Relation Name Status Comments Father Mother Social History Tobacco Use Types Packs/Day Years Used Date Smoking Tobacco: Never Smokeless Tobacco: Never Personal Safety Answer Date Recorded Getting School Help Needed Not on file 11/10 Sex and Gender Information Value Date Recorded Sex Assigned at Not on file Legal Sex Male 10:02 AM STICK PULLER Gender Identity Male 05/27/2020 8:57 AM CDT Sexual Orientation Straight 05/27/2020 8: 57 AM CDT Obstetrics History Last Filed Vital Signs Vital Sign [place] Time Taken Comments Blood Pressure 121/75 11/03/2022 9:12 AM STICK PULLER Pulse 64 11/03/2022 9:12 AM STICK PULLER Temperature - - Respiratory Rate - - Oxygen Saturation - - Inhaled Oxygen Concentration - - Weight 84.4 kg (186 lb) 11/03/2022 9:12 AM STICK PULLER Height 182.9 cm (6') 11/03/2022 9:12 AM STICK PULLER Body Mass Index 25.23 11/03/2022 9:12 AM STICK PULLER Plan of Treatment Health Maintenance Due Date Last Done Comments Colon Cancer Screening-Colonoscopy 1949 Depression Screening 1949 Fall Risk Assessment 1949 Hepatitis C Screening 1949 Hepatitis B Screening 1967 Abdominal Aortic Aneurysm (AAA) Screen 2014 Pneumococcal vaccine 65+ (1 of 1 - PCV) 2014 Well Visit 65+ 2014 Zoster Vaccine (2 of 3) 07/16/2019 05/21/2019 Influenza Vaccine (#1) 2024 10/19/2018, 2014 DTaP/Tdap/Td Vaccine (2 - Td or Tdap) 05/25/203004/2020 Insurance [employer] MEDICARE GOLD [facility] Care Teams Painting Supervisor Relationship Specialty Start Date End Date Jaqui Ramirez MD PCP - General Family Practice 05/26/20
--- OUTSIDE RECORDS SUMMARY | 2024-12-26 13:23 | XMS_ITS | Clinical Summary ---
Author Organization [facility] Address [address] [address] Phone Care Team Providers Care Paper Cup Handle Machine Operator Name Role Phone Darius Balderas MD Primary Care Provider [phone] Darius Balderas MD Unavailable Allergies Active Allergy Reactions Criticality Noted Date Comments Pseudoephedrine Other (see Comments) 11/02/2015 Urinary tract discomfort Medications aspirin EC 81 MG Tablet Delayed Response Take 81 mg by mouth daily. Active Glucosamine 500 MG Capsule Take 1 Cap by mouth daily. Active [place]-3 Fatty Acids (FISH OIL) 500 MG Capsule Take 1 Cap by mouth daily. Active CHONDROITIN SULFATE A PO Take by mouth. Active Ascorbic Acid (VITAMIN C PO) Take by mouth. Active tamsulosin (FLOMAX) 0.4 MG Capsule 03/21/2016 Active Omeprazole 20 MG Tablet Delayed Response Take by mouth. Active finasteride (PROSCAR) 5 MG Tablet 06/11/2017 Active Active Problems No known active problems Immunizations Immunization Administration Dates Next Due Influenza Vaccine greater than 3 yrs 08/31/2015 Family History Medical History Relation Name Comments Cancer Father Cancer Mother Congestive Heart Failure Sister Relation Name Status Comments Brother Alive Father Mother Sister Alive Social History Tobacco Use Types Packs/Day Years Used Date Smoking Tobacco: Never Alcohol Use Standard Drinks/Week Comments Yes 0 (1 standard drink = 0.6 oz pur e alcohol) occiasional Sex and Gender Information Value Date Recorded Sex Assigned at Not on file 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 Gender Identity Not on file Sexual Orientation Not on file Last Filed Vital Signs Vital Sign [place] Time Taken Comments Blood Pressure 110/72 06/14/2017 10:21 AM CDT Pulse 67 06/14/2017 10:21 AM CDT Temperature - - Respiratory Rate 16 06/14/2017 10:21 AM CDT Oxygen Saturation 98% 06/14/2017 10:21 AM CDT Inhaled Oxygen Concentration - - Weight 81.6 kg (180 lb) 06/14/2017 10:21 AM CDT Height 182.9 cm (6') 06/14/2017 10:21 AM CDT Body Mass Index 24.41 06/14/2017 10:21 AM CDT Plan of Treatment Health Maintenance Due Date Last Done Comments Hepatitis C Virus (HCV) Screening 1950 TdaP Immunization 1949 Colonoscopy 1994 Colorectal Cancer Screening 1994 Cologuard 1999 Immunochemical Fecal Occult Blood 1999 Pneumococcal Immunization (5 0+ years) (1 of 1 - PCV) 1999 Zoster Immunization (1 of 2) 1999 Respiratory Syncytial Virus (RSV) Immunization (Adult) (1 - 1-dose 75+ series) 2024 Influenza Immunization (#1) 2024 08/31/2015 SARS-COV-2 Immunization (1 - 2023- season) 2024 Hepatitis B Immunization Aged Out No longer eligible based on patient's age to complete this topic Meningococcal Immunization (ACWY) Aged Out No longer eligible based on patient's age to complete this topic Rotavirus Immunization Aged Out No lo nger eligible based on patient's age to complete this topic Care Teams Paper Cup Handle Machine Operator Relationship Specialty Start Date End Date Darius Balderas MD [address] [place] [address] PCP - General Family Medicine 05/06/16 Darius Balderas MD [address] [place] [address] Family Medicine 05/06/16
--- OUTSIDE RECORDS SUMMARY | 2024-12-26 13:23 | XMS_ITS | Referral Summary ---
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 DRAPERY CUTTER Gender Identity Male 05/27/2020 8:57 AM CDT Sexual Orientation Straight 05/27/2020 8: 57 AM CDT Last Filed Vital Signs Vital Sign [place] Time Taken Comments Blood Pressure 121/75 11/03/2022 9:12 AM DRAPERY CUTTER Pulse 64 11/03/2022 9:12 AM DRAPERY CUTTER Temperature - - Respiratory Rate - - Oxygen Saturation - - Inhaled Oxygen Concentration - - Weight 84.4 kg (186 lb) 11/03/2022 9:12 AM DRAPERY CUTTER Height 182.9 cm (6') 11/03/2022 9:12 AM DRAPERY CUTTER Body Mass Index 25.23 11/03/2022 9:12 AM DRAPERY CUTTER Plan of Treatment Not on file Insurance AETNA MEDICARE GOLD [facility] Care Teams Automat Car Attendant Relationship Specialty Start Date End Date Jaqui Ramirez MD PCP - General Family Practice 05/26/20
--- OUTSIDE RECORDS SUMMARY | 2024-12-26 13:23 | XMS_ITS | Continuity of Care Document ---
Author Name [facility] Address [address] [place] [address] Organization [facility] Care Team Providers Care Executive Director Contract Shop Name Role Phone [facility] Unavailable Unavailable Allergies, Adverse Reactions, Alerts Substance Category Reaction Severity Reaction type Status Date Reported Comments Source predniSONE Assertion Drug allergy Active [facility] n[place]
[2024-12-26 15:58] LABS: Hemoglobin A1C 5.9 % (<5.7)
== END 2024-12-26 13:15 | disposition home or self-care (01) ==
LOC: ANHGOSHLAB 13:16
PROVIDERS: PCP Family Medicine; Visit Provider Family Medicine
DX: R73.03 Prediabetes (principal)
CPT/HCPCS: 36415; 83036

== ENCOUNTER 2025-03-18 13:30 | Outpatient (CLI) | payer MEDICARE, SELFPAY ==
--- NOTE | 2025-03-18 14:45 | NEURO_ITS ---
Impression: # Complains of numbness of hands. ? # Mild bilateral Carpal Tunnel Syndrome, sensory more than motor. ? # Right ulnar neuropathy across the elbow. ? # Mildly abnormal needle/EMG exam. ? # Clinical correlation recommended. Nerve Conduction Studies Anti Sensory Summary Table ?Stim Site NR Peak (ms) P-T Amp (?V) Site1 Site2 Delta-P (ms) Dist (cm) Nasir (m/s) Left Median Anti Sensory (2-3nd Digit) Wrist ? 4.3 25.2 Wrist 2-3nd Digit 4.3 14.0 33 Wrist ? 4.3 36.3 Wrist 2-3nd Digit 4.3 14.0 33 Right Median Anti Sensory (2-3nd Digit) Wrist ? 4.1 13.1 Wrist 2-3nd Digit 4.1 14.0 34 Wrist ? 4.2 20.4 Wrist 2-3nd Digit 4.1 14.0 34 Left Radial Anti Sensory (Base 1st Digit) Wrist ? 2.3 10.2 Wrist Base 1st Digit 2.3 0.0 Right Radial Anti Sensory (Base 1st Digit) Wrist ? 2.3 14.6 Wrist Base 1st Digit 2.3 0.0 Left Ulnar Anti Sensory (5th Digit) Wrist ? 3.1 13.6 Wrist 5th Digit 3.1 14.0 45 Right Ulnar Anti Sensory (5th Digit) Wrist ? 2.8 42.4 Wrist 5th Digit 2.8 14.0 50 Motor Summary Table ?Stim Site NR Onset (ms) O-P Amp (mV) Site1 Site2 Delta-0 (ms) Dist (cm) Nasir (m/s) Left Median Motor (Abd Poll Brev) Wrist ? 4.5 3.1 Elbow Wrist 6.0 33.0 55 Elbow ? 10.5 6.1 Right Median Motor (Abd Poll Brev) Wrist ? 4.3 4.5 Elbow Wrist 6.4 32.0 50 Elbow ? 10.7 4.2 Left Ulnar Motor (Abd Dig Minimi) Wrist ? 2.8 4.0 A Elbow Wrist 5.5 32.0 58 A Elbow ? 8.3 4.1 B Elbow Wrist 4.5 25.0 56 B Elbow ? 7.3 4.3 Right Ulnar Motor (Abd Dig Minimi) Wrist ? 3.0 5.7 A Elbow Wrist 6.5 32.0 49 A Elbow ? 9.5 4.0 B Elbow Wrist 4.1 23.0 56 B Elbow ? 7.1 4.3 F Wave Studies ?NR F-Lat (ms) L-R F-Lat (ms) Left Median (Mrkrs) (Abd Poll Brev) ? 33.39 0.99 Right Median (Mrkrs) (Abd Poll Brev) ? 34.39 0.99 Left Ulnar (Mrkrs) (Abd Dig Min) ? 32.26 1.19 Right Ulnar (Mrkrs) (Abd Dig Min) ? 33.45 1.19 EMG ?Side Muscle Nerve Root Ins Act Fibs Amp Dur Recrt Comment Right 1stDorInt Ulnar C8-T1 Nml Nml Nml >12ms +1 Right Ext Indicis Radial (Post Int) C7-8 Nml Nml Nml Nml Nml Right Ext Digitorum Radial (Post Int) C7-8 Nml Nml Nml Nml Nml Right BrachioRad Radial C5-6 Nml Nml Nml Nml Nml Right PronatorTeres Median C6-7 Nml Nml Nml Nml Nml Right Abd Poll Brev Median C8-T1 Nml Nml Nml Nml Nml Right ABD Dig Min Ulnar C8-T1 Nml Nml Nml >12ms +1 Right FlexPolLong Median (Ant Int) C7-8 Nml Nml Nml Nml Nml Right Abd Poll Long Radial (Post Int) C7-8 Nml Nml Nml Nml Nml Left 1stDorInt Ulnar C8-T1 Nml Nml Nml Nml Nml Left Ext Indicis Radial (Post Int) C7-8 Nml Nml Nml Nml Nml Left Ext Digitorum Radial (Post Int) C7-8 Nml Nml Nml Nml Nml Left BrachioRad Radial C5-6 Nml Nml Nml Nml Nml Left PronatorTeres Median C6-7 Nml Nml Nml Nml Nml Left Abd Poll Brev Median C8-T1 Nml Nml Nml Nml Nml Left ABD Dig Min Ulnar C8-T1 Nml Nml Nml Nml Nml Left FlexPolLong Median (Ant Int) C7-8 Nml Nml Nml Nml Nml Left Abd Poll Long Radial (Post Int) C7-8 Nml Nml Nml Nml Nml MTDD
--- OUTSIDE RECORDS SUMMARY | 2025-03-18 14:46 | XMS_ITS | Clinical Summary ---
Author Organization [facility] Address [address] [place] [address] Care Team Providers Care Balance Wheel Hand Filer Name Role Phone Jaqui Ramirez MD Primary Care Provider Source Comments [facility],non-owned Affiliates and Associated Physician Practices is amultiple site organization consisting of ambulatory clinics and hospital sitesin [place], [place], [place] and [place]. This disclosure is being madepursuant to the Care Everywhere program and may not contain all information available regarding this patient. Last updated 18.[facility] Allergies Active Allergy Reactions Criticality Noted Date Comments Pseudoephedrine Base Other 04/02/2015 Urinary track gets inflammed Medications * Be aware that medications may not be up to date on this document. Alwaysverify current medications with the patient. glucosamine 500 MG CAPS capsule Take 1 Cap by mouth once daily. Active [place]-3 Fatty Acids (FISH OIL) 500 MG CAPS capsule Take by mouth 2 times daily. Active omeprazole EC (PRILOSEC OTC) 20 MG tablet Take 20 mg by mouth at bedtime Active Aspirin 81 MG Take 81 mg by mouth Active finasteride (PROSCAR) 5 MG tablet 06/11/2017 Active tamsulosin (FLOMAX) 0.4 MG capsule 03/21/2016 Active fluticasone propionate (FLONASE) 50 MCG/ACT nasal sprayIndications :Acute pharyngitis, unspecified etiology [place] 2 Sprays into each nostril once daily [...] at Not on file Legal Sex Male 1:17 PM CDT Gender Identity Not on file Sexual Orientation [...] Health Maintenance Due Date Last Done Comments HEPATITIS C SCREENING 01/03/1967 DTAP/TDAP/TD VACCINES (1 - Tdap) 1968 PNEUMOCOCCAL VACCINE 50+ (1 of 1 - PCV) 1999 ZOSTER VACCINE (1 of 2) 1999 Respiratory Syncytial Virus (RSV) Vaccine Pt: or over 60 yrs (1 - 1-dose 75+ series) 2024 COVID-19 VACCINE ( - 2023-2 5 season) 2024 DEPRESSION SCREENING 11/20/2024 INFLUENZA VACCINE (Season Ended) 2025 08/31/20 15 HEPATITIS B VACCINE Aged Out No longe r eligible based on patient's age to complete this topic HIB VACCINE Aged Out No longer eligi ble based on patient's age to complete this topic HPV VACCINE Aged Out No longer eligi ble based on patient's age to complete this topic MENINGOCOCCAL (Group B) VACC INE SHARED DECISION-MAKING Aged Out No longer eligibl e based on patient's age to complete this topic MENINGOCOCCAL GROUPS A/C/Y/W VACCINE Aged Out No longer eligible b ased on patient's age to complete this topic Insurance COVENTRY MEDICARE COVENTRY MEDICARE [facility] Care Teams Balance Wheel Hand Filer Relationship Specialty Start Date End Date Jaqui Ramirez MD [address] [place] [address] PCP - General 08/25/22
--- OUTSIDE RECORDS SUMMARY | 2025-03-18 14:46 | XMS_ITS | Continuity of Care Document ---
Author Name [facility] Address [address] [place] [address] Organization [facility] Care Team Providers Care Banquet Server Name Role Phone [facility] Unavailable Unavailable Allergies, Adverse Reactions, Alerts Substance Category Reaction Severity Reaction type Status Date Reported Comments Source predniSONE Assertion Drug allergy Active [facility] nton
--- OUTSIDE RECORDS SUMMARY | 2025-03-18 14:46 | XMS_ITS | Clinical Summary ---
Author Organization [facility] Address [facility] [address] Care Team Providers Care Clinical Laboratory Aide Name Role Phone Jaqui Ramirez MD Primary [...] mg/mL solution 1 mg 0 Active glucosam-chondr kan-W-thhzbvwfl 500-400-2-0.33 mg capsule Take 1 capsule by mouth daily Active omega 1-gml-glf-fish oil (Fish Oil) 900-1,400 mg capsule,delayed release(DR/EC) 8 Active ascorbic acid,vitamin C,,bulk, 100 % powder Take by mouth Active tadalafiL (CIALIS) 5 mg tablet Take 5 mg by mouth daily 2 Active Active Problems No known active problems Surgical History Surgery Date Site/Laterality Comments HERNIA REPAIR KNEE SURGERY TRANSURETHRAL RESECTION OF PROSTATE Medical History Medical History Date Comments Cancer (HCC) Family History Medical History Relation Name [...] on file 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 Gender Identity Male 05/27/2020 8:57 AM CDT Sexual Orientation Straight 05/27/2020 8: 57 AM CDT Obstetrics History Last Filed Vital Signs Vital Sign [place] Time Taken Comments Blood Pressure 121/75 11/03/2022 9:12 AM ROTO 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 Pulse 64 11/03/2022 9:12 AM ROTO 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 Temperature - - Respiratory Rate - - Oxygen Saturation - - Inhaled Oxygen Concentration - - Weight 84.4 kg (186 lb) 11/03/2022 9:12 AM ROTO 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 Height 182.9 cm (6') 11/03/2022 9:12 AM ROTO 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 Body Mass Index 25.23 11/03/2022 9:12 AM ROTO 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 Plan of Treatment Health Maintenance Due Date Last Done Comments Depression Screening 1949 Fall Risk Assessment 1949 Hepatitis C Screening 1949 Hepatitis B Screening 1967 Pneumococcal vaccine 65+ (1 of 1 - PCV) 1999 Well Visit 65+ 2014 Zoster Vaccine (2 of 3) 07/16/2019 05/21/2019 Influenza Vaccine (Season Ended) 2025 10/19/20 18, 08/31/2015 DTaP/Tdap/Td Vaccine (2 - Td or Tdap) 05/25/203004/2020 Insurance AETNA MEDICARE [facility]OLD [facility] Care Teams Clinical Laboratory Aide Relationship Specialty Start Date End Date Jaqui Ramirez MD PCP - General Family Practice 05/26/20
--- OUTSIDE RECORDS SUMMARY | 2025-03-18 14:46 | XMS_ITS | Referral Summary ---
Author Organization [facility] Address [facility] [place] [address] Care Team Providers Care Airport Screener Name Role Phone Jaqui Ramirez MD Primary [...] mg/mL solution 1 mg 0 Active glucosam-chondr qup-C-eqapoticb 500-400-2-0.33 mg capsule Take 1 capsule by mouth daily Active omega 9-ryl-gny-fish oil (Fish Oil) 900-1,400 mg capsule,delayed release(DR/EC) [...] on file Legal Sex Male 10:02 AM CONTAINER CRANE OPERATOR Gender Identity Male 05/27/2020 8:57 AM CDT Sexual Orientation Straight 05/27/2020 8: 57 AM CDT Last Filed Vital Signs Vital Sign [place] Time Taken Comments Blood Pressure 121/75 11/03/2022 9:12 AM CONTAINER CRANE OPERATOR Pulse 64 11/03/2022 9:12 AM CONTAINER CRANE OPERATOR Temperature - - Respiratory Rate - - Oxygen Saturation - - Inhaled Oxygen Concentration - - Weight 84.4 kg (186 lb) 11/03/2022 9:12 AM CONTAINER CRANE OPERATOR Height 182.9 cm (6') 11/03/2022 9:12 AM CONTAINER CRANE OPERATOR Body Mass Index 25.23 11/03/2022 9:12 AM CONTAINER CRANE OPERATOR Plan of Treatment Not on file Insurance AETNA MEDICARE GOLD [facility] Care Teams Airport Screener Relationship Specialty Start Date End Date Jaqui Ramirez MD PCP - General Family Practice 05/26/20
--- OUTSIDE RECORDS SUMMARY | 2025-03-18 14:46 | XMS_ITS | Clinical Summary ---
Author Organization [facility] Address [address] [place] [address] Phone Care Team Providers Care Design Tech Name Role Phone Darius Balderas MD Primary Care Provider [phone] Darius Balderas MD Unavailable [phone] Allergies Active Allergy Reactions Criticality Noted Date Comments Pseudoephedrine Other (see Comments) 11/02/2015 Urinary tract discomfort Medications aspirin EC 81 MG Tablet Delayed Response Take 81 mg by mouth daily. Active Glucosamine 500 MG Capsule Take 1 Cap by mouth daily. 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 Gender Identity Not on file Sexual Orientation [...] Virus (HCV) Screening 1950 TdaP Immunization 1950 Pneumococcal Immunization (5 0+ years) (1 of 1 - PCV) 1999 Zoster Immunization (1 of 2) 1999 Respiratory Syncytial Virus (RSV) Immunization (Adult) (1 - 1-dose 75+ series) 2024 Influenza Immunization (#1) 2024 08/31/2015 SARS-COV-2 Immunization ( - 2023- season) 2024 Hepatitis B Immunization Aged Out No longer eligible based on patient's age to complete this topic Meningococcal Immunization (ACWY) Aged Out No longer eligible based on patient's age to complete this topic Rotavirus Immunization Aged Out No lo nger eligible based on patient's age to complete this topic Care Teams Design Tech Relationship Specialty Start Date End Date Darius Balderas MD [address] [place] [address] PCP - General Family Medicine 05/06/16 Darius Balderas MD [address] [place] [address] Family Medicine 05/06/16
== END 2025-03-18 13:31 | disposition home or self-care (01) ==
PROVIDERS: PCP Family Medicine; Visit Provider Family Medicine
DX: R20.0 Anesthesia of skin (principal); R20.2 Paresthesia of skin; G56.03 Carpal tunnel syndrome, bilateral upper limbs; G56.21 Lesion of ulnar nerve, right upper limb
CPT/HCPCS: 95886; 95911

== ENCOUNTER 2025-07-31 09:47 | Outpatient (CLI) | payer MEDICARE, SELFPAY ==
--- OUTSIDE RECORDS SUMMARY | 2003-11-19 19:00 | XMS_ITS | Continuity of Care Document ---
Author Name [facility] Address [address] [place] [address] Organization [facility] Care Team Providers Care Circular Sawyer Stone Name Role Phone [facility] Unavailable Unavailable Allergies, Adverse Reactions, Alerts Substance Category Reaction Severity Reaction type Status Date Reported Comments Source predniSONE Assertion Drug allergy Active [facility]
--- OUTSIDE RECORDS SUMMARY | 2025-07-31 10:36 | XMS_ITS | Clinical Summary ---
Author Organization [facility] Address [address] [facility] [address] [place] [address] Phone Care Team Providers Care Electrical And Instrument Engineer Name Role Phone Darius Balderas MD Primary Care Provider [phone] Darius Balderas MD Unavailable [phone] Allergies Active Allergy Reactions Criticality Noted Date Comments Pseudoephedrine Other (see Comments) 11/02/2015 Urinary tract discomfort Medications aspirin EC 81 MG Tablet Delayed Response Take 81 mg by mouth daily. Active Glucosamine 500 MG Capsule Take 1 Cap by mouth daily. 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 Gender Identity Not on file Sexual Orientation [...] 1-dose 75+ series) 2024 Influenza Immunization (#1) 2025 08/31/2015 SARS-COV-2 Immunization ( - 2023- season) 2025 Hepatitis B Immunization Aged Out No longer eligible based on patient's age to complete this topic Human Papillomavirus (HPV) Immunization Aged Out No longer eligible b ased on patient's age to complete this topic Meningococcal Immunization (ACWY) Aged Out No longer eligible based on patient's age to complete this topic Rotavirus Immunization Aged Out No lo nger eligible based on patient's age to complete this topic Care Teams Electrical And Instrument Engineer Relationship Specialty Start Date End Date Darius Balderas MD [address] [place] [address] PCP - General Family Medicine 05/06/16 Darius Balderas MD [address] [place] [address] Family Medicine 05/06/16
--- OUTSIDE RECORDS SUMMARY | 2025-07-31 10:36 | XMS_ITS | Clinical Summary ---
Author Organization [facility] [employer] Address [address] [place] [address] Care Team Providers Care Referral Clerk Name Role Phone Jaqui Ramirez MD Primary Care Provider Source Comments [facility] [employer],non-owned Affiliates and Associated Physician Practices is amultiple site organization consisting of ambulatory clinics and hospital sitesin [place], [place], [place] and [place]. This disclosure is being madepursuant to the Care Everywhere program and may not contain all information available regarding this patient. Last updated 18.[facility] [employer] Allergies Active Allergy Reactions Criticality Noted Date Comments Pseudoephedrine Base Other 04/02/2015 Urinary track gets inflammed Medications * Be aware that medications may not be up to date on this document. Alwaysverify current medications with the patient. glucosamine 500 MG CAPS capsule Take 1 Cap by mouth once daily. Active [place]-3 Fatty Acids (FISH OIL) 500 MG CAPS [...] MCG/ACT nasal sprayIndications :Acute pharyngitis, unspecified etiology [place] 2 Sprays into each nostril once daily [...] yrs (1 - 1-dose 75+ series) 2024 DEPRESSION SCREENING 11/20/2024 COVID-19 VACCINE ( - 2023-2 5 season) 2025 INFLUENZA VACCINE (#1) 2025 08/31/2015 HEPATITIS B VACCINE Aged Out No longe [...] this topic Insurance COVENTRY MEDICARE COVENTRY MEDICARE [facility] Care Teams Referral Clerk Relationship Specialty Start Date End Date Jaqui Ramirez MD [address] [place] [address] [facility] - General 08/25/22
--- OUTSIDE RECORDS SUMMARY | 2025-07-31 10:36 | XMS_ITS | Clinical Summary ---
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 ICE GUARD INSPECTOR Gender Identity Male 05/27/2020 8:57 AM CDT Sexual Orientation Straight 05/27/2020 8: 57 AM CDT Obstetrics History Last Filed Vital Signs Vital Sign Reading Time Taken Comments Blood Pressure 121/75 11/03/2022 9:12 AM ICE GUARD INSPECTOR Pulse 64 11/03/2022 9:12 AM ICE GUARD INSPECTOR Temperature - - Respiratory Rate - - Oxygen Saturation - - Inhaled Oxygen Concentration - - Weight 84.4 kg (186 lb) 11/03/2022 9:12 AM ICE GUARD INSPECTOR Height 182.9 cm (6') 11/03/2022 9:12 AM ICE GUARD INSPECTOR Body Mass Index 25.23 11/03/2022 9:12 AM ICE GUARD INSPECTOR Plan of Treatment Health Maintenance Due Date Last Done Comments Depression Screening 1950 Fall Risk Assessment 1950 Hepatitis C Screening 1950 Hepatitis B Screening 1967 Pneumococcal vaccine 65+ (1 of 1 - PCV) 1999 Well Visit 65+ 2014 Zoster Vaccine (2 of 3) 07/16/2019 05/21/2019 Influenza Vaccine (#1) 2025 10/19/2018, 2014 DTaP/Tdap/Td Vaccine (2 - Td or Tdap) 05/25/203004/2020 [facility] [facility]IC[facility] Care Teams Assurance Specialist Relationship Specialty Start Date End Date Jaqui Ramirez MD PCP - General Family Practice 05/26/20
[2025-07-31 19:19] LABS: Hematocrit 44.6 % (42.0-52.0); Hemoglobin 14.4 g/dL (14.0-18.0); Immature Granulocyte Percent A 0.2 % (0-0.5); Lymphocytes Absolute Auto 1.72 K/mm3 (0.9-3.2); Mean Corpuscular HGB Conc 32.3 g/dl (32-36); Mean Corpuscular Hemoglobin 30.0 pg (26-34); Mean Corpuscular Volume 92.9 fl (80-100); Nucleated Red Blood Cells Absolute Auto 0.000 K/mm3 (0.0-0.012); Nucleated Red Blood Cells Perc 0.0 % (0.0-0.2); Platelet Count Result 152 k/mm3 (150-375); Red Blood Count 4.80 M/mm3 (4.6-6.20); White Blood Count 5.0 K/mm3 (4.5-10.0)
[2025-07-31 19:53] LABS: Alanine Aminotransferase 16 U/L (6-50); Albumin Level 4.2 g/dL (3.5-5.1); Alkaline Phosphatase 79 U/L (38-126); Anion Gap 6 mmol/L (4-12); Aspartate Amino Transferase 31 U/L (17-59); Bilirubin,Total 0.6 mg/dL (0.2-1.3); Blood Urea Nitrogen 16 mg/dL (9-20); Calcium 9.2 mg/dL (8.4-10.2); Carbon Dioxide 30 mmol/L (22-30); Chloride 104 mmol/L (98-107); Cholesterol 172 mg/dL (0-200); Estimated Glomerular Filt Rate > 60; Glucose 93 mg/dL (65-110); HDL Direct 51 mg/dL; Potassium 4.7 mmol/L (3.4-5.0); Sodium 140 mmol/L (137-145); Total Protein 7.0 g/dL (6.3-8.2); Triglycerides 78 mg/dL (<150)
[2025-07-31 20:12] LABS: Hemoglobin A1C 5.7 % (<5.7)
[2025-07-31 20:41] LABS: Thyroid Stimulating Hormone Reflex 3.390 uIU/mL (0.465-4.68)
[2025-07-31 20:47] LABS: Vitamin B12 412.0 pg/mL (239-931)
== END 2025-07-31 09:48 | disposition home or self-care (01) ==
LOC: ANHGOSHLAB 09:47
PROVIDERS: PCP Family Medicine; Visit Provider Family Medicine
DX: E78.5 Hyperlipidemia, unspecified (principal); R73.03 Prediabetes; E53.8 Deficiency of other specified B group vitamins; E55.9 Vitamin D deficiency, unspecified; R20.2 Paresthesia of skin; R20.0 Anesthesia of skin; Z79.899 Other long term (current) drug therapy
CPT/HCPCS: 36415; 80053; 80061; 82306; 82607; 83036; 84443; 85025

== ENCOUNTER 2025-10-10 08:46 | Outpatient (CLI) | payer MEDICARE, SELFPAY ==
--- OUTSIDE RECORDS SUMMARY | 2025-10-10 08:50 | XMS_ITS | Clinical Summary ---
Author Organization [facility] Address [facility] [place] [address] Care Team Providers Care Assembler Erector Name Role Phone Jaqui Ramirez MD Primary [...] mg/mL solution 1 mg 0 Active glucosam-chondr ncx-N-fpkysbhur 500-400-2-0.33 mg capsule Take 1 capsule by mouth daily Active omega 5-kwa-hzs-fish oil (Fish Oil) 900-1,400 mg capsule,delayed release(DR/EC) [...] on file Legal Sex Male 10:02 AM MILITARY EXCHANGE WIRELESS MANAGER Gender Identity Male 05/27/2020 8:57 AM CDT Sexual Orientation Straight 05/27/2020 8: 57 AM CDT Last Filed Vital Signs Vital Sign Reading Time Taken Comments Blood Pressure 121/75 11/03/2022 9:12 AM MILITARY EXCHANGE WIRELESS MANAGER Pulse 64 11/03/2022 9:12 AM MILITARY EXCHANGE WIRELESS MANAGER Temperature - - Respiratory Rate - - Oxygen Saturation - - Inhaled Oxygen Concentration - - Weight 84.4 kg (186 lb) 11/03/2022 9:12 AM MILITARY EXCHANGE WIRELESS MANAGER Height 182.9 cm (6') 11/03/2022 9:12 AM MILITARY EXCHANGE WIRELESS MANAGER Body Mass Index 25.23 11/03/2022 9:12 AM MILITARY EXCHANGE WIRELESS MANAGER Plan of Treatment Health Maintenance Due Date Last Done Comments Depression Screening 1949 Fall Risk Assessment 1949 Hepatitis C Screening 1949 Hepatitis B Screening 1967 Pneumococcal vaccine 65+ (1 of 1 - PCV) 1999 Well Visit 65+ 2014 Zoster Vaccine (2 of 3) 07/16/2019 05/21/2019 Influenza Vaccine (#1) 2025 10/19/2018, 2014 DTaP/Tdap/Td Vaccine (2 - Td or Tdap) 05/25/203004/2020 Insurance AETNA [facility]IC[facility] Care Teams Assembler Erector Relationship Specialty Start Date End Date Jaqui Ramirez MD PCP - General Family Practice 05/26/20
--- OUTSIDE RECORDS SUMMARY | 2025-10-10 08:50 | XMS_ITS | Clinical Summary ---
Author Organization [facility] Address [address] [facility] [facility] [address] [place] [address] Phone Care Team Providers Care Agriscience Teacher Name Role Phone Darius Balderas MD Primary Care Provider [phone] Darius Balderas MD Unavailable [phone] Allergies Active Allergy Reactions Criticality Noted Date Comments Pseudoephedrine Other (see Comments) 11/02/2015 Urinary tract discomfort Medications aspirin EC 81 MG Tablet Delayed Response Take 81 mg by mouth daily. Active Glucosamine 500 MG Capsule Take 1 Cap by mouth daily. 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 Gender Identity Not on file Sexual Orientation [...] Virus (HCV) Screening 1950 TdaP Immunization 1950 Varicella Immunization (1 of 2 - 13+ 2-dose series) 1962 Pneumococcal Immunization (5 0+ years) (1 of 1 - PCV) 1999 Zoster Immunization (1 of 2) 1999 Respiratory Syncytial Virus (RSV) Immunization (Adult) (1 - 1-dose 75+ series) 2024 Influenza Immunization (#1) 2025 08/31/2015 SARS-COV-2 Immunization ( - season) 2025 Hepatitis B Immunization Aged Out [...] age to complete this topic Care Teams Agriscience Teacher Relationship Specialty Start Date End Date Darius Balderas MD [address] [place] [address] PCP - General Family Medicine 05/06/16 Darius Balderas MD [address] [place] [address] Family Medicine 05/06/16
--- OUTSIDE RECORDS SUMMARY | 2025-10-10 08:50 | XMS_ITS | Clinical Summary ---
Author Organization [facility] Address [address] [place] [address] Care Team Providers Care Duck Bill Operator Name Role Phone Jaqui Ramirez MD Primary Care Provider Source Comments [facility],non-owned Affiliates and Associated Physician Practices is amultiple site organization consisting of ambulatory clinics and hospital sitesin [place], [place], [place] and [place]. This disclosure is being madepursuant to the Care Everywhere program and may not contain all information available regarding this patient. Last updated 18.[facility] Allergies Active Allergy Reactions Criticality Noted Date Comments Pseudoephedrine Base Other 04/02/2015 Urinary track gets inflammed Medications * Be aware that medications may not be up to date on this document. Alwaysverify current medications with the patient. glucosamine 500 MG CAPS capsule Take 1 Cap by mouth once daily. Active [place]-3 Fatty Acids (FISH OIL) 500 MG CAPS [...] MCG/ACT nasal sprayIndications :Acute pharyngitis, unspecified etiology [place] 2 Sprays into each nostril once daily [...] series) 2024 DEPRESSION SCREENING 11/20/2024 COVID-19 VACCINE (1 - 2024-2 6 season) 2025 INFLUENZA VACCINE (#1) 2025 08/31/2015 [...] this topic Insurance COVENTRY MEDICARE [facility] Care Teams Duck Bill Operator Relationship Specialty Start Date End Date Jaqui Ramirez MD [address] [place] [address] [facility] - General 08/25/22
== END 2025-10-10 08:47 | disposition home or self-care (01) ==
LOC: ANHAUDIO 08:46
PROVIDERS: PCP Family Medicine; Visit Provider Otolaryngology
DX: H69.91 Unspecified Eustachian tube disorder, right ear (principal); H90.11 Conductive hearing loss, unilateral, right ear, with unrestricted hearing on the contralateral side
CPT/HCPCS: 92557; 92567

== ENCOUNTER 2025-10-13 08:46 | Outpatient (CLI) | payer MEDICARE, SELFPAY ==
--- OUTSIDE RECORDS SUMMARY | 2025-10-13 09:17 | XMS_ITS | Clinical Summary ---
Author Organization [facility] Address [facility] [place] [address] Care Team Providers Care Bottom Bleacher Name Role Phone Jaqui Ramirez MD Primary [...] mg/mL solution 1 mg 0 Active glucosam-chondr uyb-R-xasxamhsr 500-400-2-0.33 mg capsule Take 1 capsule by mouth daily Active omega 5-kft-eyz-fish oil (Fish Oil) 900-1,400 mg capsule,delayed release(DR/EC) [...] on file Legal Sex Male 10:[address] WORK[address] Gender Identity Male 05/27/2020 8:57 AM CDT Sexual Orientation Straight 05/27/2020 8: 57 AM CDT Last Filed Vital Signs Vital Sign Reading Time Taken Comments Blood Pressure 121/75 11/03/2022 9:[address] Pulse 64 11/03/2022 9:[address] Temperature - - Respiratory Rate - - Oxygen Saturation - - Inhaled Oxygen Concentration - - Weight 84.4 kg (186 lb) 11/03/2022 9:[address] Height 182.9 cm (6') 11/03/2022 9:[address] Body Mass Index 25.23 11/03/2022 9:[address] WORK[address] Plan of Treatment Not on file Insurance AETNA MEDICARE [facility] Care Teams Bottom Bleacher Relationship Specialty Start Date End Date Jaqui Ramirez MD PCP - General Family Practice 05/26/20
--- OUTSIDE RECORDS SUMMARY | 2025-10-13 09:17 | XMS_ITS | Clinical Summary ---
Author Organization [facility] Address [address] [place] [address] Care Team Providers Care Capper Machine Operator Name Role Phone Jaqui Ramirez MD Primary Care Provider Source Comments [facility],non-owned Affiliates and Associated Physician Practices is amultiple site organization consisting of ambulatory clinics and hospital sitesin [place], [place], [place] and [place]. This disclosure is being madepursuant to the Care Everywhere program and may not contain all information available regarding this patient. Last updated 18.[facility] Allergies Active Allergy Reactions Criticality Noted Date Comments Pseudoephedrine Base Other 04/02/2015 [address]inary track gets inflammed Medications * Be aware that medications may not be up to date on this document. Alwaysverify current medications with the patient. glucosamine 500 MG CAPS capsule Take 1 Cap by mouth once daily. Active [place]-3 Fatty Acids (FISH OIL) 500 MG CAPS [...] MCG/ACT nasal sprayIndications :Acute pharyngitis, unspecified etiology [place] 2 Sprays into each nostril once daily [...] this topic Insurance COVENTRY MEDICARE [facility] Care Teams Capper Machine Operator Relationship Specialty Start Date End Date Jaqui Ramirez MD [address] [place] [address] [facility] - General 08/25/22
--- OUTSIDE RECORDS SUMMARY | 2025-10-13 09:17 | XMS_ITS | Clinical Summary ---
Author Organization [facility] Address [address] [facility] [address] [place] [address] Phone Care Team Providers Care Custodian Athletic Equipment Name Role Phone Darius Balderas MD Primary Care Provider [phone] Darius Balderas MD Unavailable [phone] Allergies Active Allergy Reactions Criticality Noted Date Comments Pseudoephedrine Other (see Comments) 11/02/2015 Urinary tract discomfort Medications aspirin EC 81 MG Tablet Delayed Response Take 81 mg by mouth daily. Active Glucosamine 500 MG Capsule Take 1 Cap by mouth daily. 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
[2025-10-13 13:03] LABS: Hematocrit 43.8 % (42.0-52.0); Hemoglobin 14.1 g/dL (14.0-18.0); Immature Granulocyte Percent A 0.3 % (0-0.5); Lymphocytes Absolute Auto 1.27 K/mm3 (0.9-3.2); Mean Corpuscular HGB Conc 32.2 g/dl (32-36); Mean Corpuscular Hemoglobin 29.8 pg (26-34); Mean Corpuscular Volume 92.6 fl (80-100); Nucleated Red Blood Cells Absolute Auto 0.000 K/mm3 (0.0-0.012); Nucleated Red Blood Cells Perc 0.0 % (0.0-0.2); Platelet Count Result 252 k/mm3 (150-375); Red Blood Count 4.73 M/mm3 (4.6-6.20); White Blood Count 3.3 K/mm3 (4.5-10.0)
[2025-10-13 13:26] LABS: Alanine Aminotransferase 54 U/L (6-50); Albumin Level 4.1 g/dL (3.5-5.1); Alkaline Phosphatase 86 U/L (38-126); Anion Gap 6 mmol/L (4-12); Aspartate Amino Transferase 52 U/L (17-59); Bilirubin,Total 0.4 mg/dL (0.2-1.3); Blood Urea Nitrogen 19 mg/dL (9-20); Calcium 9.1 mg/dL (8.4-10.2); Carbon Dioxide 28 mmol/L (22-30); Chloride 105 mmol/L (98-107); Estimated Glomerular Filt Rate > 60; Glucose 84 mg/dL (65-110); Magnesium 2.2 mg/dL (1.6-2.3); Potassium 4.5 mmol/L (3.4-5.0); Sodium 139 mmol/L (137-145); Total Protein 7.2 g/dL (6.3-8.2)
== END 2025-10-13 08:47 | disposition home or self-care (01) ==
LOC: ANHGOSHLAB 08:47
PROVIDERS: PCP Family Medicine; Visit Provider Nurse Practitioner Family
DX: R51.9 Headache, unspecified (principal); R42 Dizziness and giddiness; R61 Generalized hyperhidrosis
CPT/HCPCS: 36415; 80053; 83735; 85025